=== PATIENT | male | born 1980 | race Caucasian/White ===

== ENCOUNTER 2024-05-15 15:41 | Emergency (ER) | payer OTHER, SELFPAY ==
--- NOTE | ~2024-05-15 | XR_ITS ---
HISTORY: left shoulder pain RADIATES DOWN LEFT ARM AFTER SLEEP COMPARISON: None TECHNIQUE: 4 views of the left shoulder were performed FINDINGS: No acute fracture. The glenohumeral joint space is maintained. Findings suggesting acromioclavicular joint malalignment, for which clinical correlation is needed. The visualized portion of the adjacent left lung is clear. The humeral head is well seated within the glenoid fossa. IMPRESSION: No acute fracture or anterior dislocation. Findings suggesting acromioclavicular joint malalignment, for which clinical correlation (and examina tion) is needed. Reviewed, dictated and finalized at location A. PICKER IMPRESSION: No acute fracture or anterior dislocation. Findings suggesting acromioclavicular joint malalignment, for which clinical co rrelation (and examination) is needed.
--- NOTE | ~2024-05-15 | XR_ITS ---
EXAMINATION: XR chest 2V Exam Date/Time: 05/15/2024 17:25 SOFT SUGAR OPERATOR HEAD HISTORY: lightheadedness Comparison: None. RESULT: Lines, tubes, and devices: None. Lungs and pleura: Clear. Cardiomediastinal silhouette: Normal. Other: No acute osseous or upper abdominal finding. IMPRESSION: No acute cardiopulmonary process. Reviewed, dictated and finalized at location K. SUGAR OPERATOR HEAD
[2024-05-15 15:50] VITALS: BP 170/84; PULSE 59; RESP 18; TEMP 36.4; O2SAT 100
--- NOTE | 2024-05-15 16:07 | ED.GENADULT ---
HPI - General Adult General Chief complaint: Unspecified <Kailyn Ocampo PA-C - Last Filed: 05/16/24 10:37> Stated complaint: L shoulder pain, lightheaded and nausea <Kailyn Ocampo PA-C - Last Filed: 05/16/24 10:37> Time Seen by Provider: 05/15/24 16:07 <Kailyn Ocampo PA-C - Last Filed: 05/16/24 10:37> Focused HPI: This is a 44 year old male that presents to the ER for left shoulder pain. Radiating into his neck. Ongoing since this morning. Reports this afternoon he started to feel lightheaded and nauseous. Reports he was sick over the weekend with a cold. Denies chest pain, shortness of breath. GENERAL: Well-appearing, well-nourished, and in no acute distress. HEAD: Normocephalic, atraumatic. CHEST: Clear to auscultation. ?No respiratory distress. HEART: Regular rate and rhythm.? NEURO: ?Alert and oriented x3. Patient screened in triage and initial orders placed.? ?Additional care and disposition to be based upon?diagnostic testing and treatment. <Kailyn Ocampo PA-C - Last Filed: 05/16/24 10:37> History of Present Illness HPI narrative: Agree with the HPI above. Patient denies any injuries or falls. No remote trauma, no history of shoulder pain in the past. Thinks he might have slept on it wrong. <Andrzej Sauer MD - Last Filed: 05/15/24 20:13> Related Data Allergies/adverse reactions: Allergies Allergy/AdvReac Type Severity Reaction Status Date / Time No Known Allergies Allergy Verified 05/15/24 15:42 <Kailyn Ocampo PA-C - Last Filed: 05/16/24 10:37> Review of Systems Review of Systems: As reviewed above in HPI <Andrzej Sauer MD - Last Filed: 05/15/24 20:13> PMFSH Past Medical History Medical History: Medical History (Updated 05/16/24 @ 10:37 by Kailyn Ocampo PA-C) Hyperlipidemia <Kailyn Ocampo PA-C - Last Filed: 05/16/24 10:37> Family History Family History: Family History Father Hypertension Heart problem Mother Breast cancer Grandparent Bone cancer Hypertension Heart problem Cerebrovascular accident Other Family history of coronary artery disease <Kailyn Ocampo PA-C - Last Filed: 05/16/24 10:37> Social History Social History: Social History Smoking status: Never smoker Second hand tobacco smoke exposure: No Alcohol intake: current Drinks per week: 6 Substance use: never Substance use type: does not use Do You Feel Safe in your Home?: Yes Lack of Transportation: No Lack of Food: Never True Current Housing: I Have Housing Concerned About Future Housing: No Difficulty Paying Gas/Electric Bills: No Difficulty Paying for Meds: No Currently Unemployed: No Education: Master's Degree or Higher Difficulty w/ Childcare or Family Care: No 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 Mucous membranes moist. NECK: Supple. CHEST: [Clear to auscultation. No respiratory distress.] HEART: [Regular rate and rhythm]. No murmur heard. [Normal peripheral pulses.] ABDOMEN: [Soft, nondistended], [nontender], [No rigidity or guarding] EXTREMITIES: Normal range of motion. [No edema.] Some mild tenderness to palpation over the anterior lateral AC joint, there appears to be some step-off between the acromioclavicular joint compared to the right shoulder. No restricted range of motion, no tenting of the skin, no clavicular dislocation, no obvious fractures, no crepitus. Passive and active range of motion is full without any reproducible pain, no frozen shoulder. SKIN: Warm, dry, no rash. NEURO: [No focal deficits]. Alert and oriented [x3.] PSYCH: [Normal mood and affect.] <Andrzej Sauer MD - Last Filed: 05/15/24 20:13> Course Vital Signs Vital signs: Vital Signs Temperature 97.6 F 05/15/24 15:50 Pulse Rate 59 L 05/15/24 15:50 Respiratory Rate 18 05/15/24 15:50 Blood Pressure 170/84 H 05/15/24 15:50 Pulse Oximetry 100 05/15/24 15:50 Temperature 97.6 F 05/15/24 15:50 Pulse Rate 58 L 05/15/24 20:33 Respiratory Rate 16 05/15/24 20:33 Blood Pressure 133/88 05/15/24 20:33 Pulse Oximetry 97 05/15/24 20:33 <Kailyn Ocampo PA-C - Last Filed: 05/16/24 10:37> Vital Signs Temperature 97.6 F 05/15/24 15:50 Pulse Rate 59 L 05/15/24 15:50 Respiratory Rate 18 05/15/24 15:50 Blood Pressure 170/84 H 05/15/24 15:50 Pulse Oximetry 100 05/15/24 15:50 Temperature 97.6 F 05/15/24 15:50 Pulse Rate 58 L 05/15/24 20:33 Respiratory Rate 16 05/15/24 20:33 Blood Pressure 133/88 05/15/24 20:33 Pulse Oximetry 97 05/15/24 20:33 <Andrzej Sauer MD - Last Filed: 05/15/24 20:13> Medical Decision Making MDM Narrative Medical decision making narrative: 44-year-old male presenting with left-sided shoulder pain radiating up to his neck. He is otherwise well-appearing not any acute distress, has a history of some hypertension hyperlipidemia. He has some mild tenderness in his left shoulder with appearance step off but no signal obvious external fractures or dislocation. Full range of motion and no frozen shoulder. No tachycardia, fever, hypoxia. Blood pressure came down after being examined the 2nd time. Without any intervention. Cardiac workup was ordered given the left-sided pain radiating towards his neck with associated nauseousness and lightheadedness earlier today. Symptoms have subsided aside from some mild pain in the shoulder. Suspicion presently is for musculoskeletal pain, ligamentous injury, musculoskeletal chest pain, less likely ACS or intrathoracic process such as pneumothorax or pneumonia. Workup ordered including chest x-ray, shoulder x-ray, EKG, CBC, CMP, lipase, troponin. He was given Naprosyn and Tylenol and a shoulder sling applied. Workup shows no leukocytosis or anemia. Normal platelet count. Electrolytes within normal range, negative troponin. Normal glucose, largely unremarkable LFTs. Negative viral panel. Chest x-ray shows no cardiac process, shoulder x-ray shows no fracture dislocation but there is AC joint malalignment correlating with his clinical exam. Patient likely has ligamentous sprain rather than a true dislocation or separation of his AC joint. He has good range of motion. Sling was applied, he was given pain control medications with improvement and given orthopedics follow-up instructions. Patient was safe and stable for discharge home at this time. <Andrzej Sauer MD - Last Filed: 05/15/24 20:13> Medical Records Medical records reviewed: Yes I reviewed the external patient's medical records. <Andrzej Sauer MD - Last Filed: 05/15/24 20:13> Vital Signs Vital Signs: Vital Signs Temperature 97.6 F 05/15/24 15:50 Pulse Rate 59 L 05/15/24 15:50 Respiratory Rate 18 05/15/24 15:50 Blood Pressure 170/84 H 05/15/24 15:50 Pulse Oximetry 100 05/15/24 15:50 Temperature 97.6 F 05/15/24 15:50 Pulse Rate 58 L 05/15/24 20:33 Respiratory Rate 16 05/15/24 20:33 Blood Pressure 133/88 05/15/24 20:33 Pulse Oximetry 97 05/15/24 20:33 <Kailyn Ocampo PA-C - Last Filed: 05/16/24 10:37> Vital Signs Temperature 97.6 F 05/15/24 15:50 Pulse Rate 59 L 05/15/24 15:50 Respiratory Rate 18 05/15/24 15:50 Blood Pressure 170/84 H 05/15/24 15:50 Pulse Oximetry 100 05/15/24 15:50 Temperature 97.6 F 05/15/24 15:50 Pulse Rate 58 L 05/15/24 20:33 Respiratory Rate 16 05/15/24 20:33 Blood Pressure 133/88 05/15/24 20:33 Pulse Oximetry 97 05/15/24 20:33 <Andrzej Sauer MD - Last Filed: 05/15/24 20:13> Lab Data Lab results reviewed: Yes I reviewed the patient's lab results. <Andrzej Sauer MD - Last Filed: 05/15/24 20:13> Result diagrams: 05/15/24 17:21 05/15/24 17:21 <Kailyn Ocampo PA-C - Last Filed: 05/16/24 10:37> Labs: Lab Results 05/15/24 Range/Units 17:21 WBC 6.8 (4.5-10.0) K/mm3 RBC 5.63 (4.6-6.20) M/mm3 Hgb 17.0 (14.0-18.0) g/dL Hct 47.0 (42.0-52.0) % MCV 83.5 (80-100) fl MCH 30.2 (26-34) pg MCHC 36.2 H (32-36) g/dl RDW 12.1 (11.5-14.5) % Plt Count 188 (150-375) k/mm3 MPV 10.9 H (7.4-10.4) fl Immature Gran % (Auto) 0.6 H (0-0.5) % Neut % (Auto) 62.4 (45.5-73.1) % Lymph % (Auto) 21.9 (18.3-44.2) % [place] % (Auto) 6.6 (2.6-8.5) % Eos % (Auto) 7.2 H (0-4.4) % Baso % (Auto) 1.3 H (0.2-1.2) % Lymph # (Auto) 1.48 (0.9-3.2) K/mm3 [place] # (Auto) 0.5 (0.1-0.6) K/mm3 Eos # (Auto) 0.5 H (0-0.3) K/mm3 Baso # (Auto) 0.1 (0.0-0.1) K/mm3 Abs Immat Gran (auto) 0.04 H (0.00-0.031) K/mm3 Absolute Neuts (auto) 4.2 (1.3-6.7) K/mm3 Absolute Nucleated RBC 0.000 (0.0-0.012) K/mm3 Nucleated RBC % 0.0 (0.0-0.2) % Sodium 138 (137-145) mmol/L Potassium 4.0 (3.4-5.0) mmol/L Chloride 100 (98-107) mmol/L Carbon Dioxide 26 (22-30) mmol/L Anion Gap 12 (4-12) mmol/L BUN 13 (9-20) mg/dL Creatinine 0.75 (0.7-1.3) mg/dL Estim Creat Clear Calc 114 ml/min Estimated GFR > 60 (59 - ) Glucose 98 (65-110) mg/dL Calcium 10.0 (8.4-10.2) mg/dL Total Bilirubin 1.5 H (0.2-1.3) mg/dL AST 40 (17-59) U/L ALT 83 H (6-50) U/L Alkaline Phosphatase 56 (38-126) U/L Troponin I < 0.012 (0.000-0.034) ng/mL Total Protein 8.0 (6.3-8.2) g/dL Albumin 5.1 (3.5-5.1) g/dL Influenza A (RT-PCR) Negative (Negative) Influenza B (RT-PCR) Negative (Negative) RSV (RT-PCR) Negative (Negative) SARS-CoV-2 RNA (RT-PCR) Negative (Negative) <Kailyn Ocampo PA-C - Last Filed: 05/16/24 10:37> Lab Results 05/15/24 Range/Units 17:21 WBC 6.8 (4.5-10.0) K/mm3 RBC 5.63 (4.6-6.20) M/mm3 Hgb 17.0 (14.0-18.0) g/dL Hct 47.0 (42.0-52.0) % MCV 83.5 (80-100) fl MCH 30.2 (26-34) pg MCHC 36.2 H (32-36) g/dl RDW 12.1 (11.5-14.5) % Plt Count 188 (150-375) k/mm3 MPV 10.9 H (7.4-10.4) fl Immature Gran % (Auto) 0.6 H (0-0.5) % Neut % (Auto) 62.4 (45.5-73.1) % Lymph % (Auto) 21.9 (18.3-44.2) % [place] % (Auto) 6.6 (2.6-8.5) % Eos % (Auto) 7.2 H (0-4.4) % Baso % (Auto) 1.3 H (0.2-1.2) % Lymph # (Auto) 1.48 (0.9-3.2) K/mm3 [place] # (Auto) 0.5 (0.1-0.6) K/mm3 Eos # (Auto) 0.5 H (0-0.3) K/mm3 Baso # (Auto) 0.1 (0.0-0.1) K/mm3 Abs Immat Gran (auto) 0.04 H (0.00-0.031) K/mm3 Absolute Neuts (auto) 4.2 (1.3-6.7) K/mm3 Absolute Nucleated RBC 0.000 (0.0-0.012) K/mm3 Nucleated RBC % 0.0 (0.0-0.2) % Sodium 138 (137-145) mmol/L Potassium 4.0 (3.4-5.0) mmol/L Chloride 100 (98-107) mmol/L Carbon Dioxide 26 (22-30) mmol/L Anion Gap 12 (4-12) mmol/L BUN 13 (9-20) mg/dL Creatinine 0.75 (0.7-1.3) mg/dL Estim Creat Clear Calc 114 ml/min Estimated GFR > 60 (59 - ) Glucose 98 (65-110) mg/dL Calcium 10.0 (8.4-10.2) mg/dL Total Bilirubin 1.5 H (0.2-1.3) mg/dL AST 40 (17-59) U/L ALT 83 H (6-50) U/L Alkaline Phosphatase 56 (38-126) U/L Troponin I < 0.012 (0.000-0.034) ng/mL Total Protein 8.0 (6.3-8.2) g/dL Albumin 5.1 (3.5-5.1) g/dL Influenza A (RT-PCR) Negative (Negative) Influenza B (RT-PCR) Negative (Negative) RSV (RT-PCR) Negative (Negative) SARS-CoV-2 RNA (RT-PCR) Negative (Negative) <Andrzej Sauer MD - Last Filed: 05/15/24 20:13> Imaging Data Attestation: I personally reviewed and interpreted this imaging study as follows: <Andrzej Sauer MD - Last Filed: 05/15/24 20:13> My impression: Impressions Shoulder X-Ray 05/15/24 16:34 IMPRESSION: No acute fracture or anterior dislocation. Findings suggesting acromioclavicular joint malalignment, for which clinical correlation (and examination) is needed. Chest X-Ray 05/15/24 17:36 IMPRESSION: No acute cardiopulmonary process. <Andrzej Sauer MD - Last Filed: 05/15/24 20:13> ECG Data EKG #1: Attestation: I personally reviewed and interpreted this ECG as follows: <Andrzej Sauer MD - Last Filed: 05/15/24 20:13> ECG completion date: 05/15/24 <Andrzej Sauer MD - Last Filed: 05/15/24 20:13> ECG completion time: 17:19 <Andrzej Sauer MD - Last Filed: 05/15/24 20:13> Prior ECG tracings: not available for review <Andrzej Sauer MD - Last Filed: 05/15/24 20:13> Interpretation: Some MO prolongation but no ST segment elevations, depressions or inversions. No ectopy. MO interval 216, QRS 88, QTC 415. Overall follow interpretation sinus rhythm with first-degree block. <Andrzej Sauer MD - Last Filed: 05/15/24 20:13> Critical Care Time Critical Care Time Critical Care Time: No <Kailyn Ocampo PA-C - Last Filed: 05/16/24 10:37> Discharge Plan Discharge Clinical Impression: Acromioclavicular (joint) (ligament) sprain Qualifiers: Encounter type: initial encounter Laterality: left Qualified Code(s): S43.52XA - Sprain of left acromioclavicular joint, initial encounter Acute shoulder pain Qualifiers: Laterality: left Qualified Code(s): M25.512 - Pain in left shoulder <Kailyn Ocampo PA-C - Last Filed: 05/16/24 10:37> Patient Disposition: Home, Self-Care <Kailyn Ocampo PA-C - Last Filed: 05/16/24 10:37> Condition: Stable <CAYETANO D[place] Last Filed: 05/16/24 10:37> Instructions: Antibiotic Form, Acromioclavicular Separation (ED) <Kailyn Ocampo PA-C - Last Filed: 05/16/24 10:37> Additional Instructions: You have a small separation in the acromioclavicular joint on the left shoulder which likely explains her pain and symptoms. Wear the sling for comfort but did not wear it 10/10 as this can lead to muscle stiffness and further pain. Take the prescription Naprosyn and Tylenol for pain control and inflammation control, follow-up with Orthopedic surgery or your regular doctor. Return with any new or worsening concerns. Your cardiac workup was otherwise reassuring. <Kailyn Ocampo PA-C - Last Filed: 05/16/24 10:37> Patient Language: Yemeni <Kailyn Ocampo PA-C - Last Filed: 05/16/24 10:37> Prescriptions: New naproxen 500 mg tablet 500 mg PO BID PRN (Reason: pain) 15 Days Qty: 30 0RF acetaminophen [Tylenol Extra Strength] 500 mg tablet 1,000 mg PO TID PRN (Reason: pain) Qty: 30 0RF No Action albuterol sulfate 90 mcg/actuation HFA aerosol inhaler 2 inh inhalation .COMPLEX Qty: 8.5 1RF Rx Instructions: Use 15-20 minutes before exercise <Kailyn Ocampo PA-C - Last Filed: 05/16/24 10:37> Follow-up/Referrals: Marilia,Prudencio Gallo MD [Primary Care Provider] - Levi Casillas MD [Physician] - 1 Week (AC sprain/separation) <Kailyn Ocampo PA-C - Last Filed: 05/16/24 10:37> Time of Disposition: 20:12 <Kailyn Ocampo PA-C - Last Filed: 05/16/24 10:37> 20:12 <Andrzej Sauer MD - Last Filed: 05/15/24 20:13>
--- NOTE | 2024-05-15 16:08 | ECG_ITS ---
Test Date: 2024-05-15 17:19:25 Measurements Intervals [place] Rate: 66 P: 60 IN: 216 QRS: 59 QRSD: 88 T: 46 QT: 395 QTc: 415 Interpretive Statements SINUS RHYTHM WITH SINUS ARRHYTHMIA WITH FIRST DEGREE AV BLOCK LEFT ATRIAL ENLARGEMENT NONSPECIFIC ST & T-WAVE ABNORMALITY- ANT/INF LEADS BASELINE ARTIFACT- I, II, AVR, AVL, AVF BORDERLINE ECG No previous ECG available for comparison Electronically Signed On 05-15-2024 19:05:44 BIOLOGY MANAGER by Franck Samuel D.O.
[2024-05-15 17:28] LABS: Basophils Absolute Auto 0.1 K/mm3 (0.0-0.1); Basophils Percent Auto 1.3 % (0.2-1.2); Eosinophils Absolute Auto 0.5 K/mm3 (0-0.3); Eosinophils Percent Auto 7.2 % (0-4.4); Immature Granulocyte Absolute 0.04 K/mm3 (0.00-0.031); Immature Granulocyte Percent A 0.6 % (0-0.5); Lymphocytes Absolute Auto 1.48 K/mm3 (0.9-3.2); Lymphocytes Percent Auto 21.9 % (18.3-44.2); Mean Corpuscular HGB Conc 36.2 g/dl (32-36); Mean Corpuscular Hemoglobin 30.2 pg (26-34); Mean Corpuscular Volume 83.5 fl (80-100); Mean Platelet Volume 10.9 fl (7.4-10.4); Monocytes Absolute Auto 0.5 K/mm3 (0.1-0.6); Monocytes Percent Auto 6.6 % (2.6-8.5); Neutrophils Absolute Auto 4.2 K/mm3 (1.3-6.7); Neutrophils Percent Auto 62.4 % (45.5-73.1); Platelet Count Result 188 k/mm3 (150-375); Red Blood Count 5.63 M/mm3 (4.6-6.20); Red Cell Distribution Width 12.1 % (11.5-14.5); White Blood Count 6.8 K/mm3 (4.5-10.0)
[2024-05-15 17:49] LABS: Alanine Aminotransferase 83 U/L (6-50); Albumin Level 5.1 g/dL (3.5-5.1); Alkaline Phosphatase 56 U/L (38-126); Anion Gap 12 mmol/L (4-12); Aspartate Amino Transferase 40 U/L (17-59); Bilirubin,Total 1.5 mg/dL (0.2-1.3); Blood Urea Nitrogen 13 mg/dL (9-20); Carbon Dioxide 26 mmol/L (22-30); Chloride 100 mmol/L (98-107); Estimated CRCL calculation 114 ml/min; Estimated Glomerular Filt Rate > 60; Glucose 98 mg/dL (65-110); Sodium 138 mmol/L (137-145)
--- OUTSIDE RECORDS SUMMARY | 2024-05-15 18:01 | XMS_ITS | Patient Health Summary ---
Author Organization [facility] Address [address] [place] [address] Care Team Providers Care Bookkeeping Service Sales Agent Name Role Phone Unknown, Provider Primary Care Provider Unavaila ble Note from [facility],non-owned Affiliates and Associated Physician Practices is amultiple site organization consisting of ambulatory clinics and hospital sitesin [place], [place], [place] and [place]. This disclosure is being madepursuant to the Care Everywhere program and may not contain all information available regarding this patient. Last updated 17.[facility] Allergies No known active allergies Medications * Be aware that medications may not be up to date on this document. Alwaysverify current medications with the patient. * influenza quadrivalent vac (AFLURIA QUAD) 0.5 ML injection Afluria Qd 2019- (36 mos up)(PF)60 mcg (15 mcg x4)/0.5 mL IM syringe ADM 0.5ML IM UTD * azithromycin (ZITHROMAX) 250 MG tablet(Started 10/28/2020) Take 2 tabs today, then 1 tab daily for next 4 days * fluticasone propionate (FLONASE) 50 MCG/ACT nasal spray(Started 10/28/2020) [place] 2 (two) sprays into each nostril once daily Active Problems Problem Noted Date Diagnosed Date Encounter for male sterilization procedure 10/28 Social History Tobacco Use Types Packs/Day Years Used Date Smoking Tobacco: Never Smokeless Tobacco: Never Sex and Gender Information Value Date Recorded Sex Assigned at Not on file Gender Identity Not on file Sexual Orientation Not on file Last Filed Vital Signs Vital Sign Reading Time Taken Comments Blood Pressure 118/68 10/28/2020 12:33 PM CDT Pulse 66 10/28/2020 12:33 PM CDT Temperature 36.9 C (98.4 F) 10/28/2020 12:33 PM CDT Respiratory Rate - - Oxygen Saturation 97% 10/28/2020 12:33 PM CDT Inhaled Oxygen Concentration - - Weight 72.6 kg (160 lb) 10/28/2020 12:33 PM CDT Height 177.8 cm (5' 10 ) 10/28/2020 12:33 PM CDT Body Mass Index 22.96 10/28/2020 12:33 PM CDT Procedures * SARS-COV-2 (COVID-19) AG (AMB) POCT(Performed 10/28/2020) Performed for Sore throat * STREP A SCREEN - POINT OF CARE (AMB) STL(Performed 10/28/2020) Performed for Sore throat Results * SARS-COV-2 (COVID-19) AG (AMB) POCT (10/28/2020 12:45 PM CDT) SARS-CoV-2 Ag Negative Negative [facility] Lot # [id number] [facility] Expiration Date 03/28/22 [facility] Instrument Serial Number [id number] [facility] COVID Internal Control Acceptable Acceptable [facility] Microbiology SPECIMEN FROM NASAL FOSSAE / Unknown 10/28/2020 12:45 PM CDT Jose Armando Martinez WET ROOM WORKER-NURSE EXTERN LAB - POINT OF CARE ORDERABLES Performing Organization Address City/State/[facility] Co de Phone Number [facility] [address] [phone] * STREP A SCREEN - POINT OF CARE (AMB) STL (10/28/2020 12:43 PM CDT) Strep A Rapid POCT Negative Negative [facility] Strep A Internal Control Present [facility] Lot # [id number] [facility] Expiration Date 07/17/21 [facility] Throat ENTIRE THROAT (SURFACE REGION OF NECK) / Unknown 10/28/2020 12:43 PM CDT Jose Armando Martinez WET ROOM WORKER-NURSE EXTERN LAB - POINT OF CARE ORDERABLES Performing Organization Address City/State/[facility] Co de Phone Number [place] [address], [facility] [phone] Care Teams Bookkeeping Service Sales Agent Relationship Specialty Start Date End Date Unknown, Provider PCP - General 10/28/20
--- OUTSIDE RECORDS SUMMARY | 2024-05-15 18:01 | XMS_ITS | Encounter Summary ---
Author Organization [facility] Address 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
--- OUTSIDE RECORDS SUMMARY | 2024-05-15 18:01 | XMS_ITS | Referral Summary ---
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 Gender Identity Not on file Sexual Orientation Not on file Last Filed Vital Signs Vital Sign Reading Time Taken Comments Blood Pressure 124/75 05/02/2013 8:24 AM H[employer] BRIM [employer] CROWN LAMINATING OPERATOR Pulse 73 05/02/2013 8:24 AM HAT BRIM AND CROWN LAMINATING OPERATOR Temperature - - Respiratory Rate - - Oxygen Saturation - - Inhaled Oxygen Concentration - - Weight 72.1 kg (159 lb) 05/02/2013 8:24 AM HAT BRIM AND CROWN LAMINATING OPERATOR Height 177.8 cm (5' 10 ) 05/02/2013 8:24 AM HAT BRIM AND CROWN LAMINATING OPERATOR Body Mass Index 22.81 05/02/2013 8:24 AM HAT BRIM AND CROWN LAMINATING OPERATOR Plan of Treatment Not on file Insurance [employer] OPEN ACCESS [place] OPEN ACCESS Care Teams Whiskey Proof Reader Relationship Specialty Start Date End Date Thad De Luna MD [address] [address] PCP - General Family Medicine 06/22/21
--- OUTSIDE RECORDS SUMMARY | 2024-05-15 18:01 | XMS_ITS | Referral Summary ---
Author Organization [facility] Address [address] [place] [address] Care Team Providers Care Collections Professional Name Role Phone Unknown, Provider Primary Care Provider Unavaila ble Source Comments [facility],non-owned Affiliates and Associated Physician Practices is amultiple site organization consisting of ambulatory clinics and hospital sitesin [place], [place], [place] and [place]. This disclosure is being madepursuant to the Care Everywhere program and may not contain all information available regarding this patient. Last updated 17.[facility] Allergies No known active allergies Medications * Be aware that medications may not be up to date on this document. Alwaysverify current medications with the patient. Medication Sig Dispensed Refills Start Date End Date Status influenza quadrivalent vac (AFLURIA QUAD) 0.5 ML injection Afluria Qd (36 mos up)(PF)60 mcg (15 mcg x4)/0.5 mL IM syringe ADM 0.5ML IM UTD Active azithromycin (ZITHROMAX) 250 MG tabletIndications:Sinu sitis, unspecified chronicity, unspecified location Take 2 tabs today, then 1 tab daily for next 4 days 6 tablet 10/28/2020 Active fluticasone propionate (FLONASE) 50 MCG/ACT nasal sprayIndications:Sinus itis, unspecified chronicity, unspecified location [place] 2 (two) sprays into each nostril once daily 1 Each 10/28/2020 Active Active Problems Problem Noted Date Diagnosed Date [...] Mass Index 22.96 10/28/2020 12:33 PM CDT Plan of Treatment Not on file Care Teams Collections Professional Relationship Specialty Start Date End Date Unknown, Provider PCP - General 10/28/20
--- OUTSIDE RECORDS SUMMARY | 2024-05-15 18:01 | XMS_ITS | Clinical Summary ---
Author Organization [facility] Address [address] [place] [address] Phone Care Team Providers Care Grated Cheese Maker Name Role Phone Wilda Pena DO Primary Care Provider Unavaila ble Allergies No known active allergies Medications No known medications Active Problems No known active problems Family History Medical History Relation Name Comments Hypertension Father Other Maternal Grandmother possibl y multiple myeloma Healthy Mother Heart Disease Paternal Grandfather mi at age 60 Healthy Sister Relation Name Status Comments Father Alive Maternal Grandmother Mother Alive Paternal Grandfather Sister Alive Social History Tobacco Use Types Packs/Day Years Used Date Smoking Tobacco: Never Smokeless Tobacco: Never Alcohol Use Standard Drinks/Week Comments Yes 0.8 (1 standard drink = 0.6 oz p ure alcohol) couple times a week socially Sex and Gender Information Value Date Recorded Sex Assigned at Not on file Legal Sex Male 5:14 AM ADOPTION AGENT Gender Identity Not on file Sexual Orientation Not on file Last Filed Vital Signs Vital Sign Reading Time Taken Comments Blood Pressure 128/90 06/15/2010 2:53 PM CDT Pulse 82 06/15/2010 2:53 PM CDT Temperature 36.7 C (98.1 F) 06/15/2010 2:53 PM CDT Respiratory Rate 18 06/15/2010 2:53 PM CDT Oxygen Saturation 97% 06/15/2010 2:53 PM CDT Inhaled Oxygen Concentration - - Weight 75.8 kg (167 lb) 06/15/2010 2:53 PM CDT Height 182.9 cm (6') 06/15/2010 2:53 PM CDT Body Mass Index 22.65 06/15/2010 2:53 PM CDT Plan of Treatment Health Maintenance Due Date Last Done Comments DTAP/TDAP/TD VACCINES (1 - Tdap) 01/17/2000 HEPATITIS B VACCINES (1 of 3 - 19+ 3-dose series) 01/17/2000 INFLUENZA VACCINE (#1) 2023 HPV VACCINES Aged Out No longer eligi ble based on patient's age to complete this topic PNEUMOCOCCAL VACCINE 0-64 YEARS Aged Out No longer eligible based on patient's age to complete this topic Care Teams Grated Cheese Maker Relationship Specialty Start Date End Date Wilda Pena DO PCP - General Family Practice 06/15/10
--- OUTSIDE RECORDS SUMMARY | 2024-05-15 18:01 | XMS_ITS | Continuity of Care Document ---
Author Organization [facility] Address [address] [place] [address] Phone Care Team Providers Care Roll Cutting Operator Name Role Phone William PT, OSCART, Rocco Unavailable Unavailable Procedures Procedure Date Therapeutic Activities Therapeutic Exercise Neuromuscular Re-Ed Therapeutic Activities Neuromuscular Re-Ed Progress Note Therapeutic Activities Neuromuscular Re-Ed Therapeutic Activities Neuromuscular Re-Ed Progress Note Neuromuscular Re-Ed Therapeutic Activities Therapeutic Activities Neuromuscular Re-Ed Therapeutic Activities Neuromuscular Re-Ed Neuromuscular Re-Ed Therapeutic Activities Neuromuscular Re-Ed Therapeutic Activities PT Evaluation Moderate Complexity Therapeutic Activities Neuromuscular Re-Ed Advance Directives Directive Yes / No Effective Date File Name No Information Encounters Encounter Description Practice Location Reason(s) For Visit Diagnoses Date Provider Providers Copied on Encounter [facility], [place], [place], [id number], tel:[phone] [place] No Information 2 William Valiente. . [facility], [place], [place], [address], tel:[phone] [place] No Information 2 Klahn Rocco. . Referring Provider: Feli Antonio, [address], [place], [address]. tel:[phone] [facility], [address], [place], [place], [address], [place] tel:[phone] [place] No Information 2 Klahn Rocco. . Referring Provider: Feli Antonio, [address], [place], [address]. tel:[phone] [facility], [address], [place], [place], [address], [place] tel:[phone] [place] No Information 2 Klahn Rocco. . Referring Provider: Feli Antonio, [address], [place], [address]. tel:[phone] [facility], [address], [place], [place], [address], [place] tel:[phone] [place] No Information 2 Klahn Rocco. . Referring Provider: Feli Antonio, [address], [place], [address]. tel:[phone] [facility], [address], [place], [place], [address], [place] tel:[phone] [place] No Information 2 Klahn Rocco. . Referring Provider: Feli Antonio, [address], [place], [address]. tel:[phone] [facility], [address], [place], [place], [address], [place] tel:[phone] [place] No Information 2 Klahn Rocco. . Referring Provider: Feli Antonio, [address], [place], [address]. tel:[phone] [facility], [address], [place], [place], [address], tel:[phone] [place] No Information 2 William Valiente. . Referring Provider: Feli Antonio, [address] [place] [address] [address], [place], [address]. tel:[phone] [facility], [address] [place] [address] [address], [place], [place], [address], [place] tel:[phone] [place] No Information 2 William Valiente. . Referring Provider: Feli Antonio, [address] [place] [address] [address], [place], [address]. tel:[phone] [facility] [address] [address], [place], [place], [id number], tel:[phone] [place] No Information 2 William Valiente. . Referring Provider: Feli Antonio, [address] [place] [address], [place], [address]. tel:[phone] [facility] [address], [place], [place], [address], tel:[phone] [place] No Information 2 William Valiente. . Referring Provider: Feli Antonio, [facility] [address], [place], [address]. tel:[phone] Family History Family Member Type Diagnosis Age At Onset No Information Payers Payer name Insurance type Covered green party ID Yovana nieto(s) Shelley [id number] Social History Type Description Quantity Date Captured Comments Sex Male Smoking Status No Information Chief Complaint And Reason For Visit No Information Reason For Referral Reason For Referral No Information History Of Present Illness Encounter Date Complaint History Of Prese nt Illness No Information Functional Status Date Functional Assessmen t No Information Instructions Date Instruction Additional Infor mation No Information Assessments Type Assessment Date No Information Patient Care Teams Name Effective Dates (start - stop) Status Members No Information
--- OUTSIDE RECORDS SUMMARY | 2024-05-15 18:01 | XMS_ITS | Clinical Summary ---
Author Organization [facility] [employer] Address [address] [place] [place] [address] Care Team Providers Care Technical Inspector Name Role Phone Unknown, Provider Primary Care Provider Unavaila ble Source Comments [facility],non-owned Affiliates and Associated Physician Practices is amultiple site organization consisting of ambulatory clinics and hospital sitesin [place], [place], [place] and [place]. This disclosure is being madepursuant to the Care Everywhere program and may not contain all information available regarding this patient. Last updated 17.[facility] [employer] Allergies No known active allergies Medications * [...] nasal sprayIndications:Sinus itis, unspecified chronicity, unspecified location [place] 2 (two) sprays into each nostril once [...] 10/28/2020 12:33 PM CDT Plan of Treatment Health Maintenance Due Date Last Done Comments LIPID TESTING 1981 HIV SCREENING 01/17/1996 HEPATITIS C SCREENING 01/12/1999 DTAP/TDAP/TD VACCINES (1 - Tdap) 01/17/2000 HEPATITIS B VACCINE (1 of 3 - 19+ 3-dose series) 01/17/2000 COVID-19 VACCINE (2 - 2023-2 5 season) 2023 06/01/2020 INFLUENZA VACCINE (#1) 2023 0, 12/18/2017 DEPRESSION SCREENING 03/20/2024 ZOSTER VACCINE (1 of 2) 2031 HIB VACCINE Aged Out No longer eligi ble based on patient's age to complete this topic HPV VACCINE Aged Out No longer eligi ble based on patient's age to complete this topic MENINGOCOCCAL (Group B) VACCINE Aged Out No longer eligible b ased on patient's age to complete this topic MENINGOCOCCAL VACCINE Aged Out No alexei south eligible based on patient's age to complete this topic PNEUMOCOCCAL VACCINE Aged Out No long er eligible based on patient's age to complete this topic Care Teams Technical Inspector Relationship Specialty Start Date End Date Unknown, Provider PCP - General 10/28/20
--- OUTSIDE RECORDS SUMMARY | 2024-05-15 18:01 | XMS_ITS | Clinical Summary ---
Author Organization [facility] Address [address] [place] [address] Care Team Providers Care Life Skills Specialist Name Role Phone Thad De Luna MD Primary Care Provider [phone] Allergies No known active allergies Medications No known medications Active Problems No known active problems Surgical History Surgery Date Site/Laterality Comments TONSILLECTOMY 03/20/1986 - 03/19/1987 Tonsillectomy FRACTURE SURGERY 03/20/1998 - 03/19/1999 HERNIA REPAIR 03/20/1986 - 03/19/1987 VASECTOMY 03/20/2015 - 03/19/2016 Medical History Medical History Date Comments Hx Other Medical 1984 Hernia Hx Other Medical Broken right wr ist Family History Medical History Relation Name Comments Hypertension Father Gian Cancer Mother Rebecca Relation Name Status Comments Father Gian Mother Rebecca Social History Tobacco Use Types Packs/Day Years Used Date Smoking Tobacco: Never Sex and Gender Information Value Date Recorded Sex Assigned at Not on file Legal Sex Male 3:08 AM FIRST MATE Gender Identity Not on file Sexual Orientation Not on file Obstetrics History Last Filed Vital Signs Vital Sign Reading Time Taken Comments Blood Pressure 124/75 05/02/2013 8:24 AM FIRST MATE Pulse 73 05/02/2013 8:24 AM FIRST MATE Temperature - - Respiratory Rate - - Oxygen Saturation - - Inhaled Oxygen Concentration - - Weight 72.1 kg (159 lb) 05/02/2013 8:24 AM FIRST MATE Height 177.8 cm (5' 10 ) 05/02/2013 8:24 AM FIRST MATE Body Mass Index 22.81 05/02/2013 8:24 AM FIRST MATE Plan of Treatment Health Maintenance Due Date Last Done Comments Depression Screening 1981 Hepatitis C Screening 1981 Varicella Vaccines (1 of 2 - 13+ 2-dose series) 1994 Hepatitis B Screening 1999 Regular Well Visit/Exam 18-64 1999 DTaP/Tdap/Td Vaccine (3 - Td or Tdap) 04/22/2022 04/22/2012, 03/13/2012 Covid-19 Vaccine (3 - 2023-2 5 season) 2023 01/15/2021, 06/01/2020 Influenza Vaccine (#1) 2023 , 11/15/2019, 12/18/2017 HPV Vaccines Aged Out No longer eligi ble based on patient's age to complete this topic Pneumococcal vaccine <65 Aged Out No longer eligible based on patient's age to complete this topic Insurance [employer] OPEN ACCESS [employer] OPEN ACCESS Care Teams Life Skills Specialist Relationship Specialty Start Date End Date Thad De Luna MD [address] [address] PCP - General Family Medicine 06/22/21
[2024-05-15 18:03] LABS: Influenza A QL RT-PCR Negative (Negative); Influenza B QL RT-PCR Negative (Negative); RSV RNA, RT-PCR Negative (Negative); SARS-CoV-2 RNA PCR Negative (Negative)
[2024-05-15 18:57] LABS: Troponin I < 0.012 ng/mL (0.000-0.034)
[2024-05-15 19:07] VITALS: BP 142/83; PULSE 55
[2024-05-15 19:08] VITALS: BP 154/90; PULSE 79
[2024-05-15 19:09] VITALS: BP 137/104; PULSE 72
--- OUTSIDE RECORDS SUMMARY | 2024-05-15 19:15 | XMS_ITS | Encounter Summary ---
Author Organization [employer] Address [address] [place] [address] Care Team Providers Care Games Manager Name Role Phone Wilda Pena DO Primary Care Provider Yonas ferris Encounter Details Date Type Department Care Team (Latest Contact Info) Description 03/21/2006 Outpatient Historical [facility] [place] [place] MD NO ADDRESS ON FILE Open Wound of Hand (Primary Dx) Social History Tobacco Use Types Packs/Day Years Used Date Smoking Tobacco: Never Assessed Sex and Gender Information Value Date Recorded Sex Assigned at Not on file Legal Sex Male 5:14 AM BREWING TECHNICIAN Gender Identity Not on file Sexual Orientation Not on file documented as of this encounter Plan of Treatment Not on file documented as of this encounter Visit Diagnoses Diagnosis Open wound of hand except finger(s) alone, without mention of complication- Primary documented in this encounter Care Teams Games Manager Relationship Specialty Start Date End Date Wilda Pena DO PCP - General Family Practice 06/15/10 documented as of this encounter
--- OUTSIDE RECORDS SUMMARY | 2024-05-15 19:15 | XMS_ITS | Clinical Summary ---
Author Organization [facility] Address [address] [place] [address] Phone Care Team Providers Care Hospital Superintendent Name Role Phone Wilda Pena DO Primary [...] on file Legal Sex Male 5:14 AM MICROBIOLOGY MANAGER Gender Identity Not on file Sexual Orientation [...] age to complete this topic Care Teams Hospital Superintendent Relationship Specialty Start Date End Date Wilda Pena DO PCP - General Family Practice 06/15/10
--- OUTSIDE RECORDS SUMMARY | 2024-05-15 19:15 | XMS_ITS | Clinical Summary ---
Author Organization [facility] Address [address] [place] [address] Care Team Providers Care Printing Machine Mechanic Name Role Phone Thad De Luna MD Primary Care Provider [phone] Allergies No known active allergies Medications No [...] on file Legal Sex Male 3:08 AM HEAVY EQUIPMENT OPERATING ENGINEER Gender Identity Not on file Sexual Orientation Not on file Obstetrics History Last Filed Vital Signs Vital Sign Reading Time Taken Comments Blood Pressure 124/75 05/02/2013 8:24 AM HEAVY EQUIPMENT OPERATING ENGINEER Pulse 73 05/02/2013 8:24 AM HEAVY EQUIPMENT OPERATING ENGINEER Temperature - - Respiratory Rate - - Oxygen Saturation - - Inhaled Oxygen Concentration - - Weight 72.1 kg (159 lb) 05/02/2013 8:24 AM HEAVY EQUIPMENT OPERATING ENGINEER Height 177.8 cm (5' 10 ) 05/02/2013 8:24 AM HEAVY EQUIPMENT OPERATING ENGINEER Body Mass Index 22.81 05/02/2013 8:24 AM HEAVY EQUIPMENT OPERATING ENGINEER Plan of Treatment Health Maintenance Due Date [...] patient's age to complete this topic Insurance [employer] OPEN ACCESS [employer] OPEN ACCESS Care Teams Printing Machine Mechanic Relationship Specialty Start Date End Date Thda De Luna MD [address] [address] PCP - General Family Medicine 06/22/21
--- OUTSIDE RECORDS SUMMARY | 2024-05-15 19:15 | XMS_ITS | Continuity of Care Document ---
Author Organization [facility] Address [address] [place] [address] Phone Care Team Providers Care Fox Raiser Name Role Phone William PT, OSCART, Rocco Unavailable Unavailable Procedures Procedure Date Therapeutic Activities Therapeutic Exercise Neuromuscular Re-Ed Therapeutic Activities Neuromuscular Re-Ed Progress Note Therapeutic Activities Neuromuscular Re-Ed Neuromuscular Re-Ed Therapeutic Activities Progress Note Therapeutic Activities Neuromuscular Re-Ed Therapeutic Activities Neuromuscular Re-Ed Therapeutic Activities Neuromuscular Re-Ed Neuromuscular Re-Ed Therapeutic Activities Therapeutic Activities Neuromuscular Re-Ed PT Evaluation Moderate Complexity Neuromuscular Re-Ed Therapeutic Activities Advance Directives Directive Yes / No Effective Date File Name No Information Encounters Encounter Description Practice Location Reason(s) For Visit Diagnoses Date Provider Providers Copied on Encounter [facility], [place], [place], [id number], tel:[phone] [place] No Information 2 William Valiente. . [facility], [place], [place], [address], tel:[phone] [place] No Information 2 Klahn Rocco. . Referring Provider: Feli Antonio, [address], [place], [address]. tel:[phone] [facility], [address], [place], [place], [address], [place] tel:[phone] [place] No Information 2 Klahn Rocco. . Referring Provider: Feli Antonio, [address], [place], [address]. tel:[phone] [facility], [address], [place], [place], [address], [place] tel:[phone] [place] No Information 2 Klahn Rocco. . Referring Provider: Feli Antonio, [address], [place], [address]. tel:[phone] [facility], [address], [place], [place], [address], [place] tel:[phone] [place] No Information 2 Klahn Rocco. . Referring Provider: Feli Antonio, [address], [place], [address]. tel:[phone] [facility], [address], [place], [place], [address], [place] tel:[phone] [place] No Information 2 Klahn Rocco. . Referring Provider: Feli Antonio, [address], [place], [address]. tel:[phone] [facility], [address], [place], [place], [address], [place] tel:[phone] [place] No Information 2 Klahn Rocco. . Referring Provider: Feli Antonio, [address], [place], [address]. tel:[phone] [facility], [address], [place], [place], [address], tel:[phone] [place] No Information 2 William Valiente. . Referring Provider: Feli Antonio, [address] [place] [address] [address], [place], [address]. tel:[phone] [facility], [address] [place] [address] [address], [place], [place], [address], [place] tel:[phone] [place] No Information 2 William Valiente. . Referring Provider: Feli Antonio, [address] [place] [address] [address], [place], [address]. tel:[phone] [facility] [address] [address], [place], [place], [id number], tel:[phone] [place] No Information 2 William Valiente. . Referring Provider: Feli Antonio, [address] [place] [address], [place], [address]. tel:[phone] [facility] [address], [place], [place], [address], tel:[phone] [place] No Information 2 William Valiente. . Referring Provider: Feli Antonio, [facility], [place], [address]. tel:[phone] Family History Family Member Type Diagnosis Age At Onset No Information Payers Payer name Insurance type Covered republican ID Yovana nieto(s) Shelley [id number] Social History Type Description Quantity Date Captured [...]
--- OUTSIDE RECORDS SUMMARY | 2024-05-15 19:15 | XMS_ITS | Clinical Summary ---
Author Organization [facility] [employer] Address [address] [place] [address] Care Team Providers Care Voip Technician Name Role Phone Unknown, Provider Primary Care Provider Unavaila ble Source Comments [facility],non-owned Affiliates and Associated Physician Practices is amultiple site organization consisting of ambulatory clinics and hospital sitesin [place], [place], [place] and [place]. This disclosure is being madepursuant to the Care Everywhere program and may not contain all information available regarding this patient. Last updated 17.[facility] [employer] Allergies No known active allergies Medications * [...] nasal sprayIndications:Sinus itis, unspecified chronicity, unspecified location [place] 2 (two) sprays into each nostril once [...] age to complete this topic Care Teams Voip Technician Relationship Specialty Start Date End Date Unknown, Provider PCP - General 10/28/20
--- OUTSIDE RECORDS SUMMARY | 2024-05-15 19:15 | XMS_ITS | Patient Health Summary ---
Author Organization [facility] [employer] Address [address] [place] [address] Care Team Providers Care Physical Therapist Technician Name Role Phone Unknown, Provider Primary Care Provider Unavaila ble Note from [facility],non-owned Affiliates and Associated Physician Practices is amultiple site organization consisting of ambulatory clinics and hospital sitesin [place], [place], [place] and [place]. This disclosure is being madepursuant to the Care Everywhere program and may not contain all information available regarding this patient. Last updated 17.[facility] [employer] Allergies No known active allergies Medications * [...] propionate (FLONASE) 50 MCG/ACT nasal spray(Started 10/28/2020) [place] 2 (two) sprays into each nostril once [...] Negative Negative [facility] Lot # [id number] [facility] Expiration Date 03/28/22 [facility] Instrument Serial Number [id number] [facility] COVID Internal Control Acceptable Acceptable [facility] Microbiology SPECIMEN FROM NASAL FOSSAE / Unknown 10/28/2020 12:45 PM CDT Jose Armando Martinez DESIGN QUALITY ENGINEER-TREE CLIMBER LAB - POINT OF CARE ORDERABLES Performing Organization Address City/State/[facility] Co de Phone Number [facility] [address] [phone] * STREP A SCREEN - POINT OF CARE (AMB) STL (10/28/2020 12:43 PM CDT) Strep A Rapid POCT Negative Negative [facility] Strep A Internal Control Present [facility] Lot # [id number] [facility] Expiration Date 07/17/21 [facility] Throat ENTIRE THROAT (SURFACE REGION OF NECK) / Unknown 10/28/2020 12:43 PM CDT Jose Armando Martinez DESIGN QUALITY ENGINEER-TREE CLIMBER LAB - POINT OF CARE ORDERABLES Performing Organization Address City/State/[facility] Co de Phone Number [place] [address], [facility] [phone] Care Teams Physical Therapist Technician Relationship Specialty Start Date End Date Unknown, Provider PCP - General 10/28/20
--- OUTSIDE RECORDS SUMMARY | 2024-05-15 19:15 | XMS_ITS | Referral Summary ---
Author Organization [facility] Address [address] [place] [address] Care Team Providers Care Jumpbasting Facing Baster Name Role Phone Thad De Luna MD Primary Care Provider [phone] Allergies No known active allergies Medications No known medications Active Problems No known active problems Social History Tobacco Use Types Packs/Day Years Used Date Smoking Tobacco: Never Sex and Gender Information Value Date Recorded Sex Assigned at Not on file Legal Sex Male 3:08 AM BOTTLE SORTER Gender Identity Not on file Sexual Orientation Not on file Last Filed Vital Signs Vital Sign Reading Time Taken Comments Blood Pressure 124/75 05/02/2013 8:24 AM BOTTLE SORTER Pulse 73 05/02/2013 8:24 AM BOTTLE SORTER Temperature - - Respiratory Rate - - Oxygen Saturation - - Inhaled Oxygen Concentration - - Weight 72.1 kg (159 lb) 05/02/2013 8:24 AM BOTTLE SORTER Height 177.8 cm (5' 10 ) 05/02/2013 8:24 AM BOTTLE SORTER Body Mass Index 22.81 05/02/2013 8:24 AM BOTTLE SORTER Plan of Treatment Not on file Insurance [employer] OPEN ACCESS [employer] OPEN ACCESS Care Teams Jumpbasting Facing Baster Relationship Specialty Start Date End Date Thad De Luna MD [address] [address] PCP - General Family Medicine 06/22/21
--- OUTSIDE RECORDS SUMMARY | 2024-05-15 19:15 | XMS_ITS | Referral Summary ---
Author Organization [facility] Address [address] [place] [address] Care Team Providers Care Physiotherapist'S Assistant Name Role Phone Unknown, Provider Primary Care Provider Unavaila ble Source Comments [facility],non-owned Affiliates and Associated Physician Practices is amultiple site organization consisting of ambulatory clinics and hospital sitesin [place], [place], [place] and [place]. This disclosure is being madepursuant to the Care Everywhere program and may not contain all information available regarding this patient. Last updated 17.[facility] [employer] Allergies No known active allergies Medications * [...] nasal sprayIndications:Sinus itis, unspecified chronicity, unspecified location [place] 2 (two) sprays into each nostril once [...] of Treatment Not on file Care Teams Physiotherapist'S Assistant Relationship Specialty Start Date End Date Unknown, Provider PCP - General 10/28/20
[2024-05-15 20:07] VITALS: BP 133/88; PULSE 58; RESP 16; O2SAT 97
[2024-05-15] MEDS: ACETAMINOPHEN 500 MG TABLET 1000 MG PO (20:23)
[2024-05-15] MEDS: NAPROXEN 500 MG TABLET PO (20:23)
[2024-05-15 20:33] VITALS: BP 133/88; PULSE 58; RESP 16; O2SAT 97
== END 2024-05-15 20:35 | disposition home or self-care (01) ==
PROVIDERS: Physician Assistant; Emergency Provider Student in an Organized Health Care Education/Training Program; PCP Emergency Medicine
DX: S43.52XA Sprain of left acromioclavicular joint, initial encounter (principal); E78.5 Hyperlipidemia, unspecified; Z11.59 Encounter for screening for other viral diseases
CPT/HCPCS: 36415; 71046; 73030; 80053; 84484; 85025; 87637; 93005; 99284; A4565; A9270

== ENCOUNTER 2025-02-19 07:05 | Inpatient (IN) | payer OTHER, SELFPAY ==
[2025-02-19] VITALS (18 sets, daily range): BP systolic 119–160; BP diastolic 55–97; PULSE 51–87; RESP 14–18; TEMP 36.1–36.6; O2SAT 95–100; BMI 25.4
--- NOTE | ~2025-02-19 | CT_ITS ---
CT abdomen pelvis w con Clinical History: periumbilical tenderness since last night, n/v . Comparison: None Technique: Axial images lung bases to symphysis pubis IV contrast information not listed in PACS Coronal, sagittal reformats CT images acquired with automatic exposure control for dose reduction DLP: 429 mGy-cm Findings: Lung bases: Clear. Visualized heart and pericardium: Unremarkable. Liver: Enlarged. Steatosis. Gallbladder: Unremarkable. Spleen: Unremarkable. Pancreas: Unremarkable. Adrenal glands: Unremarkable. Kidneys: Right kidney- No hydronephrosis. No renal stones. Left kidney- No hydronephrosis. No renal stones. Distal esophagus/stomach: Unremarkable. Small bowel loops: Normal caliber and wall thickness. Colon: Normal caliber and wall thickness. Appendix enlarged, inflamed. Nodes: No enlarged nodes. Peritoneum: No ascites. No free air. Urinary bladder: Unremarkable. Prostate: Unremarkable. Bones: No acute bony abnormality. Soft tissues: Unremarkable. Aorta: No aneurysm or dissection. IVC: Unremarkable. Main portal vein/SMV/splenic vein: Patent. IMPRESSION: 1. Acute appendicitis. No complicating features. Reviewed, dictated and finalized at location [facility]. [employer]
--- OUTSIDE RECORDS SUMMARY | 2025-02-19 07:07 | XMS_ITS | Encounter Summary ---
Author Organization [facility] Address [facility] [place] [address] Care Team Providers Care Web Site Manager Name Role Phone Clara Reed MD Primary Care Provider + Encounter Details Date Type Department Care Team (Late Contact Info) Description 09/26/2024 MyChart Message Enc [address] [phone] Clara Reed MD [address] [place] [address] Blood pressure Social History Tobacco Use Types Packs/Day Years Used Date Smoking Tobacco: Never Passive Smoke Exposure: Past Smokeless Tobacco: Never Alcohol Use Standard Drinks/Week Comments Yes 10 (1 standard drink = 0.6 oz pu re alcohol) socially PHQ-2 Answer Date Recorded Patient Health Questionnaire-2 Score 0 09/03/2024 Sex and Gender Information Value Date Recorded Sex Assigned at Not on file Legal Sex Male 9:33 AM CDT Gender Identity Not on file Sexual Orientation Not on file 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
--- OUTSIDE RECORDS SUMMARY | 2025-02-19 07:07 | XMS_ITS | Clinical Summary ---
Author Organization [facility] Address [address] [facility] [place] [address] Care Team Providers Care Zoo Keeper Name Role Phone Unknown, Provider Primary Care Provider Unavaila ble Source Comments [facility],non-owned Affiliates and Associated Physician Practices is amultiple site organization consisting of ambulatory clinics and hospital sitesin [place], [place], [place] and [place]. This disclosure is being madepursuant to the Care Everywhere program and may not contain all information available regarding this patient. Last updated 17.[facility] Allergies No known active allergies Medications * Be aware that medications may not be up to date on this document. Alwaysverify current medications with the patient. influenza quadrivalent vac (AFLURIA QUAD) 0.5 ML injection Afluria Qd (36 mos up)(PF)60 mcg (15 mcg x4)/0.5 mL IM syringe ADM 0.5ML IM UTD Active azithromycin (ZITHROMAX) 250 MG tabletIndications :Sinusitis, unspecified chronicity, unspecified location Take 2 tabs today, then 1 tab daily for next 4 days 6 tablet 1 Active fluticasone propionate (FLONASE) 50 MCG/ACT nasal sprayIndications: Sinusitis, unspecified chronicity, unspecified location [place] 2 (two) sprays into each nostril once daily 1 Each 1 Active Active Problems Problem Noted Date Diagnosed Date Encounter for male sterilization procedure 10/28 Social History Tobacco Use Types Packs/Day Years Used Date Smoking Tobacco: Never Smokeless Tobacco: Never Sex and Gender Information Value Date Recorded Sex Assigned at Not on file Legal Sex Male 5:39 PM CDT Gender Identity Not on file Sexual [...] 12:33 PM CDT Height 177.8 cm (5' 10) 10/28/2020 12:33 PM CDT Body Mass Index 22.96 10/28/2020 12:33 PM CDT Plan of Treatment Health Maintenance Due Date Last Done Comments LIPID TESTING 1981 HIV SCREENING 01/17/1996 HEPATITIS C SCREENING 01/12/1999 DTAP/TDAP/TD VACCINES (1 - Tdap) 01/17/2000 HEPATITIS B VACCINE (1 of 3 - 19+ 3-dose series) 01/17/2000 HPV VACCINE (1 - 3-dose SCDM series) 01/17/2008 DEPRESSION SCREENING 03/20/2024 COVID-19 VACCINE (2 - 2024-2 6 season) 2024 06/01/2020 INFLUENZA VACCINE (#1) 2024 0, 12/18/2017 ZOSTER VACCINE (1 of 2) 2031 HIB VACCINE Aged Out No longer eligi ble based on patient's age to complete this topic MENINGOCOCCAL (Group B) VACCINE SHARED DECISION-MAKING Aged Out No longer eligible based on patient's age to complete this topic MENINGOCOCCAL GROUPS A/C/Y/W VACCINE Aged Out No longer eligible b ased on patient's age to complete this topic PNEUMOCOCCAL VACCINE Aged Out No long er eligible based on patient's age to complete this topic Insurance [facility] Care Teams Zoo Keeper Relationship Specialty Start Date End Date Unknown, Provider PCP - General 10/28/20
--- OUTSIDE RECORDS SUMMARY | 2025-02-19 07:07 | XMS_ITS | Clinical Summary ---
Author Organization [facility] Address [address] [place] [address] Care Team Providers Care Opening Machine Cleaner Name Role Phone Clara Reed MD Primary Care Provider + Allergies No known active allergies Medications albuterol sulfate HFA 108 (90 Base) MCG/ACT inhalerIndicatio ns:Wheezing Inhale 2 puffs into the lungs every 4 (four) hours as needed. 18 g 1 09/03/2024 Active Active Problems No known active problems Immunizations Immunization Administration Dates Next Due Influenza Adult (Generic) 12/29/2022,12/07/2021, 11/15/2019,12/18/2017 Tdap (Adacel) 09/03/2024 Tdap (Generic) 04/22/2012,03/13/2012 Family History Medical History Relation Comments No Known Problems Daughter Hypertension Father Heart Disease Maternal Grandfather Cancer Maternal Grandmother bone? Cancer Mother Breast Heart Disease Paternal Grandfather Stroke Paternal Grandfather No Known Problems Sister No Known Problems Son Relation Status Comments Daughter Alive Father Alive Maternal Grandfather Maternal Grandmother Alive Mother Alive Paternal Grandfather Sister Alive Son Alive Social History Tobacco Use Types Packs/Day Years Used Date Smoking Tobacco: Never Passive Smoke Exposure: Past Smokeless Tobacco: Never Tobacco Cessation:Counseling Given: Not Answered Alcohol Use Standard Drinks/Week Comments Yes 10 [...] Industry Job Start Date Job End Date [employer] Not on file Not on file Not on file Last Filed Vital Signs Vital Sign Reading Time Taken Comments Blood Pressure 131/88 09/03/2024 7:58 AM CDT Pulse 60 09/03/2024 7:58 AM CDT Temperature 36.3 C (97.4 F) 09/03/2024 7:58 AM CDT Respiratory Rate - - Oxygen Saturation 97% 09/03/2024 7:58 AM CDT Inhaled Oxygen Concentration - - Weight 79.1 kg (174 lb 6.4 oz) 09/03/2024 7:58 A M CDT Height 177.8 cm (5' 10) 09/03/2024 7:58 AM CDT Body Mass Index 25.02 09/03/2024 7:58 AM CDT Plan of Treatment Upcoming Encounters Date Type Department Care Team (Late st Contact Info) Description 09/04/2025 7:50 AM CDT Office Visit [facility] Family Medicine - [place] [address] [place] [phone] Clara Reed MD [address] [place], [place] [phone] Health Maintenance Due Date Last Done Comments Hepatitis C 1999 Hepatitis B Vaccines (1 of 3 - 19+ 3-dose series) 01/17/2000 HPV Vaccines (1 - 3-dose SCDM series) 01/17/2008 COVID-19 Vaccine ( season) 2024 12/29/2022, 12/07/2021, 01/15/2021, Additional history exists Influenza Adult (#1) 2024 12/29/2022, 12/07/2021, 11/15/2019, Additional history exists Annual Physical 09/03/2025 09/03/2024 DTaP, Tdap and Td Vaccines (4 - Td or Tdap) 09/03/2034 09/03/2024, 04/22/2012, 03/13/2012 PHQ-2 (Physician [place]) Completed 09/03/2024 Hepatitis A Vaccines Aged Out No long er eligible based on patient's age to complete this topic Meningococcal B Vaccine Aged Out No l onger eligible based on patient's age to complete this topic Meningococcal Vaccine Aged Out No alex[place] south eligible based on patient's age to complete this topic Pneumococcal Vaccine: Pediatrics (0 to 5 Years) and At-Risk Patients (6 to 49 Years) Aged Out No longer eligible based on patient's age to complete this topic RSV Immunizations Under 20 Months Aged Out No longer eligible based on patient's age to complete this topic Insurance [facility] Care Teams Opening Machine Cleaner Relationship Specialty Start Date End Date Clara Reed MD [address] [place] [address] PCP - General FAMILY PRACTICE 07/23/24
--- OUTSIDE RECORDS SUMMARY | 2025-02-19 07:07 | XMS_ITS | Clinical Summary ---
Author Organization [facility] Address [address] [place] [address] Care Team Providers Care Home Health Travel Ot Name Role Phone Thad De Luna MD Primary Care Provider [phone] Allergies No known active allergies Medications No [...] on file Legal Sex Male 3:08 AM HAND GLOVE CLEANER Gender Identity Not on file Sexual Orientation Not on file Last Filed Vital Signs Vital Sign Reading Time Taken Comments Blood Pressure 124/75 05/02/2013 8:24 AM HAND GLOVE CLEANER Pulse 73 05/02/2013 8:24 AM HAND GLOVE CLEANER Temperature - - Respiratory Rate - - Oxygen Saturation - - Inhaled Oxygen Concentration - - Weight 72.1 kg (159 lb) 05/02/2013 8:24 AM HAND GLOVE CLEANER Height 177.8 cm (5' 10) 05/02/2013 8:24 AM HAND GLOVE CLEANER Body Mass Index 22.81 05/02/2013 8:24 AM HAND GLOVE CLEANER Plan of Treatment Not on file Insurance [facility] OPEN ACCESS [facility] OPEN ACCESS Care Teams Home Health Travel Ot Relationship Specialty Start Date End Date Thad De Luna MD [address] [address] PCP - General Family Medicine 06/22/21
--- OUTSIDE RECORDS SUMMARY | 2025-02-19 07:07 | XMS_ITS | Encounter Summary ---
Author Organization [facility] Address [facility] [place] [address] Care Team Providers Care Firer Retort Name Role Phone Clara Reed MD Primary Care Provider + Encounter Details Date Type Department Care Team (Late Contact Info) Description 09/24/2024 MyChart Message Enc [address] [phone] Clara Reed MD [address] [place] [address] Blood pressure Social History Tobacco Use [...] Description 09/04/2025 7:50 AM CDT Office Visit [address] [phone] Clara Reed MD [address] [place] [address] documented as of this encounter Visit Diagnoses Not on filedocumented in this encounter Care Teams Firer Retort Relationship Specialty Start Date End Date Clara Reed MD [address] [place] [address] PCP - General FAMILY PRACTICE 07/23/24 documented as of this encounter
--- NOTE | 2025-02-19 07:15 | ED_ITS ---
HPI - Abdominal Pain General Chief Complaint: Abdominal Pain Stated Complaint: severe abdominal pain started last night Time Seen by Provider: 02/19/25 07:11 History of Present Illness HPI narrative: Started last night, patient started having nausea vomiting, and significant periumbilical pain, has never had this before, things worse this morning so came in. Related Data Allergies Allergy/AdvReac Type Severity Reaction Status Date / Time No Known Allergies Allergy Verified 05/22/24 07:12 [facility] Past Medical History Medical History Hyperlipidemia Family History Family History Father Hypertension Heart problem Mother Breast cancer Grandparent Bone cancer Hypertension Heart problem Cerebrovascular accident Other Family history of coronary artery disease Social History Social History (Updated 05/22/24 @ 07:48 by Nelly Aviles CMA) Smoking status: Never smoker Second hand tobacco smoke exposure: No Alcohol intake: current Drinks per week: 6 Substance use: never Substance use type: does not use Lack of Food: Never True Current Housing: Decline to Answer Concerned About Future Housing: Decline to Answer Difficulty Paying Gas/Electric Bills: Decline to Answer Difficulty Paying for Meds: Decline to Answer Currently Unemployed: Decline to Answer Education: Decline to Answer Difficulty w/ Childcare or Family Care: Decline to Answer 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 Gender identity (if verbalized by the patient): Male Course Vital Signs Vital signs: Vital Signs Temperature 97.7 F 02/19/25 07:13 Pulse Rate 61 02/19/25 07:13 Respiratory Rate 16 02/19/25 07:13 Blood Pressure 160/77 H 02/19/25 07:13 Pulse Oximetry 98 02/19/25 07:13 Oxygen Delivery Room Air 02/19/25 07:13 Temperature 97.7 F 02/19/25 07:13 Pulse Rate 60 02/19/25 09:31 Respiratory Rate 16 02/19/25 09:31 Blood Pressure 146/90 H 02/19/25 09:31 Pulse Oximetry 98 02/19/25 09:31 Oxygen Delivery Room Air 02/19/25 07:13 MDM MDM Narrative Medical decision making narrative: Electronic medical record was reviewed. Patient presented to the ED with complaint of [abdominal pain and nausea]. Vitals [were within acceptable limits]. Physical exam revealed [tenderness to palpation in periumbilical abdomen]. Based on the patient's history and physical exam, my differential includes but is not limited to [gastritis, gastroenteritis, cholecystitis, pancreatitis, appendicitis]. [IV access was established by nursing staff. Patient was given zofran, morphine]. CBC, BMP, lipase, LFTs, bilirubin and alk phos were obtained. Labs were pertinent for mildly elevated white count. CT unfortunately does show acute appendicitis. Patient updated, spoke with surgeon, antibiotics started, admitted to surgeon. Differential Diagnosis Differential Diagnosis: gastritis, gastroenteritis, cholecystitis, pancreatitis, appendicitis Lab Data 02/19/25 07:24 02/19/25 07:24 Labs: Lab Results 02/19/25 02/19/25 Range/Units 07:24 07:35 WBC 10.8 H (4.5-10.0) K/mm3 RBC 5.27 (4.6-6.20) M/mm3 Hgb 15.7 (14.0-18.0) g/dL Hct 43.3 (42.0-52.0) % MCV 82.2 (80-100) fl MCH 29.8 (26-34) pg MCHC 36.3 H (32-36) g/dl RDW 12.4 (11.5-14.5) % Plt Count 182 (150-375) k/mm3 MPV 10.4 (7.4-10.4) fl Immature Gran % (Auto) 0.6 H (0-0.5) % Neut % (Auto) 80.4 H (45.5-73.1) % Lymph % (Auto) 10.4 L (18.3-44.2) % Luna % (Auto) 4.9 (2.6-8.5) % Eos % (Auto) 3.1 (0-4.4) % Baso % (Auto) 0.6 (0.2-1.2) % Lymph # (Auto) 1.13 (0.9-3.2) K/mm3 Luna # (Auto) 0.5 (0.1-0.6) K/mm3 Eos # (Auto) 0.3 (0-0.3) K/mm3 Baso # (Auto) 0.1 (0.0-0.1) K/mm3 Abs Immat Gran (auto) 0.06 H (0.00-0.031) K/mm3 Absolute Neuts (auto) 8.7 H (1.3-6.7) K/mm3 Absolute Nucleated RBC 0.000 (0.0-0.012) K/mm3 Nucleated RBC % 0.0 (0.0-0.2) % Sodium 135 L (137-145) mmol/L Potassium 4.2 (3.4-5.0) mmol/L Chloride 103 (98-107) mmol/L Carbon Dioxide 25 (22-30) mmol/L Anion Gap 7 (4-12) mmol/L BUN 13 (9-20) mg/dL Creatinine 0.84 (0.7-1.3) mg/dL Estim Creat Clear Calc 101 ml/min Estimated GFR > 60 (59 - ) Glucose 109 (65-110) mg/dL Lactic Acid 1.4 (0.7-2.0) mmol/L Calcium 9.6 (8.4-10.2) mg/dL Total Bilirubin 1.6 H (0.2-1.3) mg/dL AST 77 H (17-59) U/L ALT 113 H (6-50) U/L Alkaline Phosphatase 52 (38-126) U/L Total Protein 7.6 (6.3-8.2) g/dL Albumin 4.8 (3.5-5.1) g/dL Lipase 90 (23-300) U/L Urine Color Yellow (Yellow) Urine Appearance Clear (Clear) Urine pH 8.0 (5.0-9.0) Ur Specific [place] 1.019 (1.001-1.035) Urine Protein Trace (Negative) mg/dL Urine Glucose (UA) Negative (Negative) mg/dL Urine Ketones Negative (Negative) mg/dL Ur Blood (Man) Negative (Negative) Urine Nitrate Negative (Negative) Urine Bilirubin Negative (Negative) Urine Urobilinogen 0.2 (<2.0) mg/dL Leukocyte Esterase Rfl Negative (Negative) DAVID/UL Urine RBC 0-2 (0-2) /hpf Urine WBC 0-5 (0-3) /hpf Ur Squamous Epith Cells None seen (Few) /hpf Urine Bacteria None seen /hpf Urine Casts 0-2 Imaging Data Radiologist's impression: ITS Impressions Abdomen/Pelvis CT 12/03/25 08:29 IMPRESSION: 1. Acute appendicitis. No complicating features. Discharge Plan Discharge Clinical Impression: Acute appendicitis Patient Disposition: Still a Patient Condition: Stable Instructions: Antibiotic Form Patient Language: Estonian Prescriptions: No Action albuterol sulfate 90 mcg/actuation HFA aerosol inhaler 2 inh inhalation .COMPLEX Qty: 8.5 1RF Rx Instructions: Use 15-20 minutes before exercise naproxen 500 mg tablet 500 mg PO BID PRN (Reason: pain) 15 Days Qty: 30 0RF acetaminophen [Tylenol Extra Strength] 500 mg tablet 1,000 mg PO TID PRN (Reason: pain) Qty: 30 0RF Follow-up/Referrals: PHYSICIAN,TUCKPOINTER CLEANER CAULKER [Non-Staff, Internal Medicine]
[2025-02-19 07:31] LABS: Hematocrit 43.3 % (42.0-52.0); Hemoglobin 15.7 g/dL (14.0-18.0); Immature Granulocyte Percent A 0.6 % (0-0.5); Lymphocytes Absolute Auto 1.13 K/mm3 (0.9-3.2); Mean Corpuscular HGB Conc 36.3 g/dl (32-36); Mean Corpuscular Hemoglobin 29.8 pg (26-34); Mean Corpuscular Volume 82.2 fl (80-100); Nucleated Red Blood Cells Absolute Auto 0.000 K/mm3 (0.0-0.012); Nucleated Red Blood Cells Perc 0.0 % (0.0-0.2); Platelet Count Result 182 k/mm3 (150-375); Red Blood Count 5.27 M/mm3 (4.6-6.20); White Blood Count 10.8 K/mm3 (4.5-10.0)
[2025-02-19 07:46] LABS: Alanine Aminotransferase 113 U/L (6-50); Albumin Level 4.8 g/dL (3.5-5.1); Alkaline Phosphatase 52 U/L (38-126); Anion Gap 7 mmol/L (4-12); Aspartate Amino Transferase 77 U/L (17-59); Bilirubin,Total 1.6 mg/dL (0.2-1.3); Blood Urea Nitrogen 13 mg/dL (9-20); Calcium 9.6 mg/dL (8.4-10.2); Carbon Dioxide 25 mmol/L (22-30); Chloride 103 mmol/L (98-107); Estimated CRCL calculation 101 ml/min; Estimated Glomerular Filt Rate > 60; Glucose 109 mg/dL (65-110); Lipase 90 U/L (23-300); Potassium 4.2 mmol/L (3.4-5.0); Sodium 135 mmol/L (137-145); Total Protein 7.6 g/dL (6.3-8.2)
--- OUTSIDE RECORDS SUMMARY | 2025-02-19 07:46 | XMS_ITS | Clinical Summary ---
Author Organization [facility] Address [address] [place] [address] Care Team Providers Care Director Business Name Role Phone Thad De Luna MD Primary Care Provider [phone] Allergies No known active allergies Medications No [...] on file Legal Sex Male 3:08 AM CLOTH PATTERN MAKER Gender Identity Not on file Sexual Orientation Not on file Last Filed Vital Signs Vital Sign Reading Time Taken Comments Blood Pressure 124/75 05/02/2013 8:24 AM CLOTH PATTERN MAKER Pulse 73 05/02/2013 8:24 AM CLOTH PATTERN MAKER Temperature - - Respiratory Rate - - Oxygen Saturation - - Inhaled Oxygen Concentration - - Weight 72.1 kg (159 lb) 05/02/2013 8:24 AM CLOTH PATTERN MAKER Height 177.8 cm (5' 10) 05/02/2013 8:24 AM CLOTH PATTERN MAKER Body Mass Index 22.81 05/02/2013 8:24 AM CLOTH PATTERN MAKER Plan of Treatment Not on file Insurance [facility] OPEN ACCESS [facility] OPEN ACCESS Care Teams Director Business Relationship Specialty Start Date End Date Thad De Luna MD [address] [address] PCP - General Family Medicine 06/22/21
--- OUTSIDE RECORDS SUMMARY | 2025-02-19 07:46 | XMS_ITS | Clinical Summary ---
Author Organization [facility] Address [address] [place] [address] Care Team Providers Care Infrastructure Director Name Role Phone Clara Reed MD Primary [...] Industry Job Start Date Job End Date [employer] company Not on file Not on file [...] Description 09/04/2025 7:50 AM CDT Office Visit [facility] Family Medicine - [place] [address] [place] [phone] Clara Reed MD [address] [place], [place] [phone] Health Maintenance Due Date Last Done Comments [...] Tdap) 09/03/2034 09/03/2024, 04/22/2012, 03/13/2012 PHQ-2 (Physician [place]) Completed 09/03/2024 Hepatitis A Vaccines Aged Out [...] patient's age to complete this topic Insurance [facility] Care Teams Infrastructure Director Relationship Specialty Start Date End Date Clara Reed MD [address] [place] [address] PCP - General FAMILY PRACTICE 07/23/24
--- OUTSIDE RECORDS SUMMARY | 2025-02-19 07:46 | XMS_ITS | Encounter Summary ---
Author Organization [facility] Address [facility] [place] [address] Care Team Providers Care Residency Coordinator Name Role Phone Clara Reed MD Primary Care Provider + Encounter Details Date Type Department Care Team (Late Contact Info) Description 09/24/2024 MyChart Message Enc [address] [phone] Clara Reed MD [address] [place] [address] Blood pressure Social History Tobacco Use [...] Description 09/04/2025 7:50 AM CDT Office Visit [address] [phone] Clara Reed MD [address] [place] [address] documented as of this encounter Visit Diagnoses Not on filedocumented in this encounter Care Teams Residency Coordinator Relationship Specialty Start Date End Date Clara Reed MD [address] [place] [address] PCP - General FAMILY PRACTICE 07/23/24 documented as of this encounter
--- OUTSIDE RECORDS SUMMARY | 2025-02-19 07:46 | XMS_ITS | Encounter Summary ---
Author Organization [facility] Address [facility] [place] [address] Care Team Providers Care Outpatient Interviewing Clerk Name Role Phone Clara Reed MD Primary Care Provider + Encounter Details Date Type Department Care Team (Late Contact Info) Description 09/26/2024 MyChart Message Enc [address] [phone] Clara Reed MD [address] [place] [address] Blood pressure Social History Tobacco Use [...] Description 09/04/2025 7:50 AM CDT Office Visit [address] [phone] Clara Reed MD [address] [place] [address] documented as of this encounter Visit Diagnoses Not on filedocumented in this encounter Care Teams Outpatient Interviewing Clerk Relationship Specialty Start Date End Date Clara Reed MD [address] [place] [address] PCP - General FAMILY PRACTICE 07/23/24 documented as of this encounter
--- OUTSIDE RECORDS SUMMARY | 2025-02-19 07:46 | XMS_ITS | Encounter Summary ---
Author Organization [facility] Address [address] [place] [address] Care Team Providers Care Biodiesel Process Control Technician Name Role Phone Wilda Pena DO Primary Care Provider [phone] Encounter Details Date Type Department Care Team (Latest Contact Info) Description 03/21/2006 Outpatient [place] [facility] [place] MD NO ADDRESS ON FILE Open Wound of Hand (Primary Dx) Social History Tobacco Use Types Packs/Day Years Used Date Smoking Tobacco: Never Assessed Sex and Gender Information Value Date Recorded Sex Assigned at Not on file Legal Sex Male 5:14 AM MILL HAND Gender Identity Not on file Sexual Orientation Not on file documented as of this encounter Plan of Treatment Not on file documented as of this encounter Visit Diagnoses Diagnosis Open wound of hand except finger(s) alone, without mention of complication- Primary documented in this encounter Care Teams Biodiesel Process Control Technician Relationship Specialty Start Date End Date Wilda Pena DO PCP - General Family Practice 06/15/10 documented as of this encounter
--- OUTSIDE RECORDS SUMMARY | 2025-02-19 07:46 | XMS_ITS | Clinical Summary ---
Author Organization [facility] Address [address] [facility] [place] [address] Care Team Providers Care Partner Alliance Manager Name Role Phone Unknown, Provider Primary Care Provider Unavaila ble Source Comments [facility],non-owned Affiliates and Associated Physician Practices is amultiple site organization consisting of ambulatory clinics and hospital sitesin [place], [place], [place] and [place]. This disclosure is being madepursuant to the Care Everywhere program and may not contain all information available regarding this patient. Last updated 17.[facility] Allergies No known active allergies Medications * [...] nasal sprayIndications: Sinusitis, unspecified chronicity, unspecified location [place] 2 (two) sprays into each nostril once [...] age to complete this topic Insurance [facility] Care Teams Partner Alliance Manager Relationship Specialty Start Date End Date Unknown, Provider PCP - General 10/28/20
--- OUTSIDE RECORDS SUMMARY | 2025-02-19 07:46 | XMS_ITS | Clinical Summary ---
Author Organization [facility] Address [address] [place] [address] Phone Care Team Providers Care Electric Motor Controls Assembler Name Role Phone Jean Wilda Leslie DICKENS Primary Care Provider [phone] Allergies No known active allergies Medications No [...] on file Legal Sex Male 5:14 AM PRESCHOOL ASSISTANT PRINCIPAL Gender Identity Not on file Sexual Orientation [...] (1 of 3 - 19+ 3-dose series) 12/20 HPV VACCINES (1 - 3-dose SCDM series) 01/17/2008 INFLUENZA VACCINE (#1) 2024 Care Teams Electric [employer] Controls Assembler Relationship Specialty Start Date End Date Wilda Pena DO PCP - General Family Practice 06/15/10
[2025-02-19 07:50] LABS: Add Urine Microscopic? YES; Appearance Urine Clear (Clear); Glucose Urine UA Negative (Negative); Leukocyte Esterase Ur Negative LEU/UL (Negative); Nitrate Urine Negative (Negative); Non Pathogenic Casts 0-2; Specific Grav Ur 1.019 (1.001-1.035)
[2025-02-19] MEDS: PIPERACILLIN/TAZOBACTAM SOD 3.375 GM in SODIUM CHLORIDE 0.9% IV 50 ML 100 ML IVPB ×3 (09:24→21:13)
[2025-02-19] MEDS: ONDANSETRON INJ 4 MG/2 ML VIAL IV PUSH (09:30)
[2025-02-19] MEDS: LACTATED RINGERS 1,000 ML 999 ML IV CONT (09:30)
[2025-02-19] MEDS: MORPHINE SULFATE (*CRX) 4 MG/ML INJ IV PUSH (09:30)
--- NOTE | 2025-02-19 09:55 | WPCEDHO ---
ED Hand Off Checklist All vitals saved:yes IV Site documented:yes All med administrations documented:yes Triage Note Triage Note patient to ED with c/o mid upper 02/19/25 07:13 abd pain since last night, no h/o surgery Allergies No Known Allergies Allergy (Verified 05/22/24 07:12) Family History (Last Reviewed 05/22/24 @ 07:12 by Luzma Oconnor [facility]) Father Hypertension Heart problem Mother Breast cancer Grandparent Bone cancer Hypertension Heart problem Cerebrovascular accident Other Family history of coronary artery disease Active Medications including assessments/comments Lactated Ringer's (Lr - Lactated Ringers Iv) 1,000 mls @ 999 mls/hr IV CONT .Q1H1M STA Stop: 02/19/25 10:23 Last Admin: 02/19/25 09:30 Dose: 999 mls/hr Documented By: TEREZA Infusion/Titration Document 02/19/25 09:30 TEREZA (Rec: 02/19/25 09:30 [facility] [id number] Intake IV Site Peripheral Access Right Forearm Container Volume 1,000 Waste Amount 0 Dosing Infusion Rate 999 Cumulative Dose Not Applicable Increase/Decrease Started Elapsed Time Elapsed Time ( 0m minutes) Administered/Completed Medications Discontinued Medications Piperacillin Sod/Tazobactam (Sod 3.375 gm/ Sodium Chloride) 50 mls @ 100 mls/hr IVPB ONCE STA Stop: 02/19/25 09:32 Last Admin: 02/19/25 09:24 Dose: 100 mls/hr Documented By: TEREZA Morphine Sulfate (Morphine Sulfate (*Crx) 4 Mg/Ml Inj) 4 mg IV PUSH ONCE STA Stop: 02/19/25 09:10 Last Admin: 02/19/25 09:30 Dose: 4 mg Documented By: TEREZA Ondansetron HCl (Ondansetron Inj 4 Mg/2 Ml Vial) 4 mg IV PUSH ONCE STA Stop: 02/19/25 09:10 Last Admin: 02/19/25 09:30 Dose: 4 mg Documented By: TEREZA Interventions/Assessments IV / Saline Lock, Insert Start: 02/19/25 07:06 Freq: Status: Active Protocol: Document 02/19/25 07:21 JOLEEN (Rec: 02/19/25 07:22 [facility] [id number]) IV Assessment Peripheral Access Right Forearm IV Catheter Access Initiated IV Insertion Date 02/19/25 IV Insertion Time 07:22 Catheter Gauge 20 IV Insertion 1 Attempts Ultrasound Used for No Placement IV Site Assessment WNL IV Care and WNL Maintenance PA: Gastrointestinal Assessment Start: 02/19/25 07:06 Freq: Status: Complete Protocol: Document 02/19/25 07:13 JOLEEN (Rec: 02/19/25 07:15 [facility] [id number]) GI Assessment Gastrointestinal Nausea,Pain Symptoms Pattern Normal Nausea/Vomiting Assessment Nausea Frequency Continuous Emesis Frequency None Last Vital Signs Temperature 97.7 F 02/19/25 07:13 Pulse Rate 60 02/19/25 09:31 Respiratory Rate 16 02/19/25 09:31 Pulse Oximetry 98 02/19/25 09:31 Blood Pressure 146/90 H 02/19/25 09:31 Blood Pressure Mean 106 02/19/25 09:31 Oxygen Delivery Room Air 02/19/25 07:13 Weight 80 kg 02/19/25 07:13 Last Result - Abnormals Only WBC 10.8 K/mm3 (4.5-10.0) H 02/19/25 07:24 MCHC 36.3 g/dl (32-36) H 02/19/25 07:24 Immature Gran % (Auto) 0.6 % (0-0.5) H 02/19/25 07:24 Neut % (Auto) 80.4 % (45.5-73.1) H 02/19/25 07:24 Lymph % (Auto) 10.4 % (18.3-44.2) L 02/19/25 07:24 Abs Immat Gran (auto) 0.06 K/mm3 (0.00-0.031) H 02/19/25 07:24 Absolute Neuts (auto) 8.7 K/mm3 (1.3-6.7) H 02/19/25 07:24 Sodium 135 mmol/L (137-145) L 02/19/25 07:24 Total Bilirubin 1.6 mg/dL (0.2-1.3) H 02/19/25 07:24 AST 77 U/L (17-59) H 02/19/25 07:24 ALT 113 U/L (6-50) H 02/19/25 07:24 Most Recent Suicide Severity Rating Suicide Severity Rating NO RISK INDICATED 02/19/25 07:13
[2025-02-19] MEDS: HYDROmorphone HCL INJ (*CRX) 1 MG/ML SYR IV PUSH ×2 (10:09→12:47)
--- NOTE | 2025-02-19 10:36 | ADMGEN ---
This patient, Ady Garcia, was admitted to Medical Room 261-01. Patient/family oriented to hospital policies and general routines including ID bracelet, bed and alarms, visiting hours, pain management, procedures, bathroom and other care routines, personal items, smoking policy, room service/diet, and visiting hours. Information on how to activate the Rapid Response Team has been discussed. Patient/Family are encouraged to report perceived risks to care and to ask questions if they do not understand what they are told or what they should do.
--- NOTE | 2025-02-19 10:55 | P.HP_ITS ---
H&P: HPI History of Present Illness Date/Time: 02/19/25 10:55 Chief Complaint: abdominal pain Narrative: Patient is a 45-year- old otherwise healthy male who presented to the ER early this morning with complaints of abdominal pain. The pain started around 10:00 p.m. as periumbilical, but has radiated down through his groin area. he became very nauseous last night and had an episode of emesis upon arrival to the emergency department. No changes in bowel or bladder habits. Once in the ED, labs revealed a mildly elevated WBC of 10.8. Afebrile A CT of the abdomen and pelvis revealed acute appendicitis. Patient was admitted to general surgery service. Started on Zosyn and IV pain medication. Denies any history of abdominal surgeries. [facility] Past Medical History Medical History Hyperlipidemia Family History Family History Father Hypertension Heart problem Mother Breast cancer Grandparent Bone cancer Hypertension Heart problem Cerebrovascular accident Other Family history of coronary artery disease Social History Social History (Updated 05/22/24 @ 07:48 by Nelly Aviles CMA) Smoking status: Never smoker Second hand tobacco smoke exposure: No Alcohol intake: current Drinks per week: 7 Substance use: never Substance use type: does not use Lack of Transportation: No Lack of Food: Never True Current Housing: I Have Housing Concerned About Future Housing: No Difficulty Paying Gas/Electric Bills: No Difficulty Paying for Meds: No Currently Unemployed: No Education: Master's Degree or Higher Difficulty w/ Childcare or Family Care: No 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 Gender identity (if verbalized by the patient): Male Spiritual care concerns: No Meds Home Medications and Allergies Home Medications ?Medication ?Instructions ?Recorded ?Confirmed ?Type acetaminophen 500 mg tablet 1,000 mg (2 x 500 mg) PO T ID PRN 05/15/24 02/19/25 Rx (Tylenol Extra Strength) pain #30 tabs naproxen 500 mg tablet 500 mg PO BID PRN pain 15 da ys #30 05/15/24 02/19/25 Rx tabs Allergies Allergy/AdvReac Type Severity Reaction Status Date / Time No Known Allergies Allergy Verified 02/19/25 10:48 Vital Signs Vital Signs - 24 hr 02/19/25 07:13 02/19/25 07:16 02/19/25 07:31 Temperature 97.7 F Pulse Rate 61 60 56 L Respiratory Rate 16 16 16 Blood Pressure 160/77 H 144/97 H 149/91 H Pulse Oximetry 98 97 98 Oxygen Delivery Room Air 02/19/25 08:54 02/19/25 09:31 Temperature Pulse Rate 60 60 Respiratory Rate 16 16 Blood Pressure 155/94 H 146/90 H Pulse Oximetry 98 98 Oxygen Delivery Exam Const: General: uncomfortable Neck: Neck: supple and no JVD Resp: Effort & Inspection: normal respiratory effort Cardio: Rate: bradycardic GI: Inspection: non-distended GI Palp: Yes Soft to palpation and Yes Tenderness to palpation present (GI) (periumbilical) Auscultation: normal bowel sounds Skin: General skin exam: normal color and no rashes or lesions noted Extrem: General: normal to inspection Psych: Mental Status: mental status grossly normal Results Labs Labs: Short CBC 02/19/25 Range/Units 07:24 WBC 10.8 H (4.5-10.0) K/mm3 Hgb 15.7 (14.0-18.0) g/dL Hct 43.3 (42.0-52.0) % Plt Count 182 (150-375) k/mm3 BMP 02/19/25 07:24 Sodium 135 L Potassium 4.2 Chloride 103 Carbon Dioxide 25 BUN 13 Creatinine 0.84 Glucose 109 Calcium 9.6 Liver Function 02/19/25 Range/Units 07:24 Total Bilirubin 1.6 H (0.2-1.3) mg/dL AST 77 H (17-59) U/L ALT 113 H (6-50) U/L Alkaline Phosphatase 52 (38-126) U/L Albumin 4.8 (3.5-5.1) g/dL Urine 02/19/25 Range/Units 07:35 Urine Color Yellow (Yellow) Urine Appearance Clear (Clear) Urine pH 8.0 (5.0-9.0) Ur Specific [place] 1.019 (1.001-1.035) Urine Protein Trace (Negative) mg/dL Urine Glucose (UA) Negative (Negative) mg/dL Assessment and Plan Assessment and plan (1) Acute appendicitis: Code(s): K35.80 - Unspecified acute appendicitis Status: Acute Assessment and Plan: Patient presented to the ED this morning with complaints of abdominal pain that started earlier in the evening around 10 pm. He had associated nausea and vomiting. Labs revealed mildly elevated WBC count of 10.8. Ct showed acute appendicitis. Patient very tender diffusely to abdomen. Will plan for laparoscopic appendectomy later this afternoon pending OR availability. risks, benefits, and alternatives discussed with the patient. He is agreeable to proceed with surgery. Keep patient NPO and treat pain and nausea. Plan Discussed patient's case and plan of care with Dr. Caro.
[2025-02-19] MEDS: LACTATED RINGERS 1,000 ML 30 ML IV CONT ×2 (14:15→17:43)
[2025-02-19] MEDS: HYDROmorphone HCL INJ (*CRX) 1 MG/ML SYR 0.25 MG IV PUSH (15:32)
--- NOTE | 2025-02-19 15:47 | WPDHPUPDATE1 ---
History and Physical Update Update Date/Time: 02/19/25 15:47 History and Physical has been reviewed, including an updated exam of the patient. There are NO changes in the patient's condition. Risks, benefits, and alternatives have been discussed and questions answered. Patient agrees to proceed with procedure.
--- NOTE | 2025-02-19 15:57 | SUR.PREOP ---
1515- Patient requesting pain medication. Orders received for IV Dilaudid from Dr. Draper, see MAR for administration. 1530- Rounded on patient and spouse. Given update on timeline for procedure to start and patient denying needs at this time. 1540- Updated patient and spouse procedure start time should begin prior to or at 1600. All questions and concerns answered at this time.
--- NOTE | 2025-02-19 16:00 | WPDANESEPPF ---
Anes - Initial Pre Proc Eval Procedure: Operation Date: 02/19/25 17:00 Proposed Procedures p Laparoscopic Appendectomy, Possible Open - Javon Caro MD Date/Time: 02/19/25 16:00 Surgeon: Javon Caro MD Pre Op Diagnosis: Appy Patient Data Age: 45 Gender: M Height: 1.78 m Weight: 80.5 kg Last Vital Signs Temp 97.9 F 02/19/25 14:27 Pulse 51 L 02/19/25 14:27 Resp 16 02/19/25 14:27 BP 153/83 H 02/19/25 14:27 Pulse Ox 99 02/19/25 14:27 O2 Del Method Room Air 02/19/25 14:27 Allergies Allergy/AdvReac Type Severity Reaction Status Date / Time No Known Allergies Allergy Verified 02/19/25 10:48 Home Medications ?Medication ?Instructions ?Recorded ?Confirmed ?Type acetaminophen 500 mg tablet 1,000 mg (2 x 500 mg) PO TID PRN 05/15/24 02/19/25 Rx (Tylenol Extra Strength) pain #30 tabs naproxen 500 mg tablet 500 mg PO BID PRN pain 15 days #30 05/15/24 02/19/25 Rx tabs Laboratory Tests 02/19/25 02/19/25 07:24 07:35 WBC 10.8 H K/mm3 (4.5-10.0) RBC 5.27 M/mm3 (4.6-6.20) Hgb 15.7 g/dL (14.0-18.0) Hct 43.3 % (42.0-52.0) MCV 82.2 fl (80-100) MCH 29.8 pg (26-34) MCHC 36.3 H g/dl (32-36) RDW 12.4 % (11.5-14.5) Plt Count 182 k/mm3 (150-375) MPV 10.4 fl (7.4-10.4) Immature Gran % (Auto) 0.6 H % (0-0.5) Neut % (Auto) 80.4 H % (45.5-73.1) Lymph % (Auto) 10.4 L % (18.3-44.2) Williams % (Auto) 4.9 % (2.6-8.5) Eos % (Auto) 3.1 % (0-4.4) Baso % (Auto) 0.6 % (0.2-1.2) Lymph # (Auto) 1.13 K/mm3 (0.9-3.2) Williams # (Auto) 0.5 K/mm3 (0.1-0.6) Eos # (Auto) 0.3 K/mm3 (0-0.3) Baso # (Auto) 0.1 K/mm3 (0.0-0.1) Abs Immat Gran (auto) 0.06 H K/mm3 (0.00-0.031) Absolute Neuts (auto) 8.7 H K/mm3 (1.3-6.7) Absolute Nucleated RBC 0.000 K/mm3 (0.0-0.012) Nucleated RBC % 0.0 % (0.0-0.2) Sodium 135 L mmol/L (137-145) Potassium 4.2 mmol/L (3.4-5.0) Chloride 103 mmol/L (98-107) Carbon Dioxide 25 mmol/L (22-30) Anion Gap 7 mmol/L (4-12) BUN 13 mg/dL (9-20) Creatinine 0.84 mg/dL (0.7-1.3) Estim Creat Clear Calc 101 ml/min Estimated GFR > 60 (59 - ) Glucose 109 mg/dL (65-110) Lactic Acid 1.4 mmol/L (0.7-2.0) Calcium 9.6 mg/dL (8.4-10.2) Total Bilirubin 1.6 H mg/dL (0.2-1.3) AST 77 H U/L (17-59) ALT 113 H U/L (6-50) Alkaline Phosphatase 52 U/L (38-126) Total Protein 7.6 g/dL (6.3-8.2) Albumin 4.8 g/dL (3.5-5.1) Lipase 90 U/L (23-300) Urine Color Yellow (Yellow) Urine Appearance Clear (Clear) Urine pH 8.0 (5.0-9.0) Ur Specific [place] 1.019 (1.001-1.035) Urine Protein Trace mg/dL (Negative) Urine Glucose (UA) Negative mg/dL (Negative) Urine Ketones Negative mg/dL (Negative) Ur Blood (Man) Negative (Negative) Urine Nitrate Negative (Negative) Urine Bilirubin Negative (Negative) Urine Urobilinogen 0.2 mg/dL (<2.0) Leukocyte Esterase Rfl Negative DAVID/UL (Negative) Urine RBC 0-2 /hpf (0-2) Urine WBC 0-5 /hpf (0-3) Ur Squamous Epith Cells None seen /hpf (Few) Urine Bacteria None seen /hpf Urine Casts 0-2 Patient hx anesthesia problems: none Family hx anesthesia problems: none Results Review: All pre-operative results and documents have been reviewed as part of the pre-operative evaluation. [facility] Past Medical History Medical History Hyperlipidemia Family History Family History Father Hypertension Heart problem Mother Breast cancer Grandparent Bone cancer Hypertension Heart problem Cerebrovascular accident Other Family history of coronary artery disease Social History Social History Smoking status: Never smoker Second hand tobacco smoke exposure: No Alcohol intake: current Drinks per week: 7 Substance use: never Substance use type: does not use Lack of Transportation: No Lack of Food: Never True Current Housing: I Have Housing Concerned About Future Housing: No Difficulty Paying Gas/Electric Bills: No Difficulty Paying for Meds: No Currently Unemployed: No Education: Master's Degree or Higher Difficulty w/ Childcare or Family Care: No 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 Hyperlipidemia, active 45 yo male, runs daily, no cp or sob, now w acute appy. Informed Consent: The patient's anesthetic plan and its attendant risks and benefits were discussed with the patient/family/POA. Questions were solicited and answers provided to the satisfaction of the patient/family/POA.
[2025-02-19] MEDS: LIDO 1%/EPINEPHRINE 1:100,000 50 ML VIAL (16:22)
[2025-02-19] MEDS: BUPivacaine HCL 0.5% 10 ML AMP 30 ML INFILTRATE (16:22)
--- NOTE | 2025-02-19 16:41 | S_PTH ---
PATIENT: Ady Garcia LOC: [id number] U#:[id number] AGE/SX: 45/M ROOM: 258 RE02/19/[address]: Julio Dominique MD : [id number] BED: 01 DIS: 02/23/2025 SPEC #: [id number] RECD: 02/20/25 08:08 STATUS: LIAM RE #: [id number] SANDRA: 02/19/25 16:[address]: Javon Caro DEPT: [facility] Surgical RECD BY: Lily Gutierrez ENTERED: 02/20/25 08:08 SP TYPE: Surgical OTHR DR: Clara ReedMD Tissues: A - Appendix Procedures: Hematoxylin and Eosin Stain Gross and Microscopic Level 3
--- NOTE | 2025-02-19 18:10 | P.OP_ITS ---
Procedure Note - Detailed Date of Procedure 02/19/25 Pre-op Diagnosis Acute appendicitis Post-op Diagnosis Other ( Acute retrocecal appendicitis with perforation) Procedure Performed Laparoscopic appendectomy Surgeon Javon Caro MD K9 Handler Carlos Mejias, OVIDIO Barlow Anesthesia General Indications Patient is a 45-year-old white male who he had 12hour history of worsening right lower quadrant abdominal pain. CT scan abdomen pelvis showed a dilated acute appendicitis without evidence of periappendiceal abscess or perforation on CT scan. Findings Patient had an advanced case of retrocecal appendicitis with a large appendicolith impacted within the proximal part of the appendix near the base. The mid portion of the appendix to the tip was very inflamed and almost gangrenous. Upon fibrillation of the appendix to free it from its peritoneal attachments behind the cecum the appendix ruptured and there was spillage of some feculent material. This was quickly aspirated from the there was some spillage of stool. After thorough washout of the right lower quadrant the abdomen a BRISA drain was left in the area postoperatively. Description of Procedure After informed consent was obtained patient was brought to the operating room was placed supine position and general endotracheal anesthesia was administered. A Lee catheter was placed decompress the bladder and the stomach was decompressed with an orogastric tube. The abdomen was then prepped and draped usual sterile fashion. A time-out was then performed correctly identifying the patient as well as procedure to be performed. He was already on scheduled IV antibiotics. First entered the abdomen left upper quadrant utilizing a 5mm Optiview port. Once inside the abdomen insufflated to adequate pneumoperitoneum of 15mmHg of CO2. I then placed a 5mm suprapubic trocar port as well as a 5mm right lower quadrant trocar port and a 12mm periumbilical trocar port all under direct visualization. With the patient then placed in the head-down Trendelenburg position rotated to the patient's left I then used a laparoscopic grasper to reach donald to the omentum off of the cecum and initially I did not see the appendix at the junction of the terminal ileum and cecum. I then looked behind and underneath the cecum and found the appendix which was in a retrocecal position. I then proceeded to mobilize the appendix from the retrocecal position with a combination of blunt dissection with the suction tip and laparoscopic milton. During manipulation of the appendix the midportion of the appendix is rupture and there was some spillage of stool into the area. This was quickly suctioned up. I then proceeded to start to divide the mesoappendix with a 45mm echelon laparoscopic stapler with a vascular load. Only a portion of the appendix was divided with the stapler and on the stay side there was bleeding from the staple line. I attempted to achieve hemostasis with electrocautery but this was unsuccessful. I then proceeded to use a 5mm laparoscopic clip dispensing lead to finally achieve hemostasis in this area the mesoappendix. I then serially divided the mesoappendix with additional vascular reload to the 45mm Endo-ROMAN stapler. Once I finally reached the base of the appendix I then divided the appendix flush with the cecum with a blue ROMAN load to the stapler. In order to do this I had to reduce a large appendicolith of the base of the appendix into the distal portion of the appendix. Once the appendix was completely freed from the cecum then placed into an Endo-Catch bag and brought out through the periumbilical trocar port site. It was passed off table sent to pathology for examination. I then irrigated out the right lower quadrant the abdomen and both staple lines with [id number] of sterile saline solution. I continued to irrigate until there was no suggestion of any feculent fluid left in the right lower quadrant or the right side of the abdomen or pelvis. The laparoscopic clips and staple lines were all in good position with hemostasis in all points. I then proceeded to place a 15 Kinyarwanda round Brody drain into the right lower quadrant the abdomen in the area of the cecum due to the perforation of the appendix with manipulation and spillage of stool in the area. The drain was placed through the right lower quadrant trocar port site and secured to the skin with 3-0 nylon suture. I then removed all the other trocar ports under direct visualization all port sites were hemostatic. The abdomen was then allowed to decompress. I irrigated all the port sites sterile saline solution. The 12mm periumbilical trocar port fascial defect was then closed utilizing a 0 PDS suture placed in a figure-eight fashion the skin edges in all the port sites were then approximated utilizing a running subcuticular 4-0 Monocryl suture. The incisions were then cleaned and then skin glue was applied. The drain was placed to active grenade bulb suction. A drain dressing was placed. The patient tolerated the procedure well no complications. All sponges, needles, and instrument counts were correct at the end procedure. EBL was _50__cc. The patient was awakened and taken to recovery in stable and satisfactory condition. Implants None Estimated Blood Loss 50 Drains Yes ( 15 Kinyarwanda BRISA drain right lower quadrant.) Packing No Pathology Yes ( Appendix and appendicoliths to pathology) Complications No immediate complications Condition Stable Disposition PACU [facility] Billing Surgery - Charge Forward: Surgery Billing
[2025-02-19] MEDS: fentaNYL CITRATE INJ (*CRX) 100 MCG/2 ML VIAL 25 MCG IV PUSH ×4 (18:44→19:01)
[2025-02-19] MEDS: HYDROcodone/acetaminophen (*CRX) 5-325 MG TABLET 1 TAB PO (21:12)
[2025-02-20] VITALS (8 sets, daily range): BP systolic 117–137; BP diastolic 62–83; PULSE 61–84; RESP 16–18; TEMP 36.5–37.1; O2SAT 93–96
[2025-02-20] MEDS: PIPERACILLIN/TAZOBACTAM SOD 3.375 GM in SODIUM CHLORIDE 0.9% IV 50 ML 100 ML IVPB ×4 (02:58→21:18)
[2025-02-20] MEDS: HYDROcodone/acetaminophen (*CRX) 5-325 MG TABLET 1 TAB PO ×5 (02:59→21:17)
[2025-02-20 05:31] LABS: Hematocrit 37.7 % (42.0-52.0); Hemoglobin 13.4 g/dL (14.0-18.0); Immature Granulocyte Percent A 0.4 % (0-0.5); Lymphocytes Absolute Auto 1.06 K/mm3 (0.9-3.2); Mean Corpuscular HGB Conc 35.5 g/dl (32-36); Mean Corpuscular Hemoglobin 29.9 pg (26-34); Mean Corpuscular Volume 84.2 fl (80-100); Nucleated Red Blood Cells Absolute Auto 0.000 K/mm3 (0.0-0.012); Nucleated Red Blood Cells Perc 0.0 % (0.0-0.2); Platelet Count Result 174 k/mm3 (150-375); Red Blood Count 4.48 M/mm3 (4.6-6.20); White Blood Count 13.9 K/mm3 (4.5-10.0)
[2025-02-20 05:40] LABS: Anion Gap 2 mmol/L (4-12); Blood Urea Nitrogen 14 mg/dL (9-20); Calcium 9.2 mg/dL (8.4-10.2); Carbon Dioxide 31 mmol/L (22-30); Chloride 101 mmol/L (98-107); Estimated CRCL calculation 85 ml/min; Estimated Glomerular Filt Rate > 60; Glucose 123 mg/dL (65-110); Potassium 4.2 mmol/L (3.4-5.0); Sodium 134 mmol/L (137-145)
--- NOTE | 2025-02-20 12:45 | P.PNGS_ITS ---
Progress Note: A&P Assessment and Plan (1) Acute appendicitis: Code(s): K35.80 - Unspecified acute appendicitis Status: Acute Assessment and Plan: * S/p laparoscopic appendectomy for acute appendicitis with perforation during surgery. WBC count 13,900 today. He is afebrile. Will continue IV Zosyn and repeat labs again in the am. * Will advance to a soft diet for dinner * Monitor the BRISA drain * Plan to keep him for at least another 24 hours on IV antibiotics and monitor * Increase activity, ambulate in the room/halls, up to chair Plan Discussed patient's case and plan of care with Dr. Caro. Subjective Subjective Date/Time Seen: 02/20/25 12:45 Post Op day: 1 (Laparoscopic appendectomy) Patient reports: no new complaints, feels better, pain is less, tolerating liquids well, voiding w/o difficulty, flatus, no bowel movement and afebrile Interval history: Patient reports abdominal pain is better since surgery. He has very minimal incisional discomfort. Reports having mostly discomfort from bloating. No nausea or vomiting. He tolerated full liquids this am for breakfast. He has not ambulated yet this morning, but was up last night without any issues. WBC count up slightly to 13k today from 10k yesterday. No fevers. Exam Const: General: comfortable and no acute distress GI: Inspection: non-distended and incision (incisions dry and intact) GI Palp: Yes Soft to palpation, Yes Tenderness to palpation present (GI) (mild diffuse tenderness) and No Guarding due to palpation present (GI) Auscultation: normal bowel sounds Other: BRISA drain with serosanguineous drainage, slightly cloudy, but not purulent Extrem: General: no calf tenderness and no edema Objective Data Vital Signs Vital Signs: Vital Signs - 24 hr 02/19/25 14:27 02/19/25 17:43 02/19/25 17:58 Temperature 97.9 F 97.5 F L Pulse Rate 51 L 76 70 Respiratory Rate 16 18 18 Blood Pressure 153/83 H 130/68 119/55 L Pulse Oximetry 99 100 98 Oxygen Delivery Room Air Simple Face Mask Simple Face Mask Oxygen Flow Rate 8 8 02/19/25 18:15 02/19/25 18:30 02/19/25 18:34 Temperature Pulse Rate 72 83 Respiratory Rate 18 18 Blood Pressure 125/58 L 123/63 Pulse Oximetry 98 98 96 Oxygen Delivery Simple Face Mask Simple Face Mask Room Air Oxygen Flow Rate 8 8 02/19/25 18:45 02/19/25 19:00 02/19/25 19:15 Temperature Pulse Rate 86 87 85 Respiratory Rate 16 16 14 Blood Pressure 143/67 H 145/71 H 143/81 H Pulse Oximetry 96 96 96 Oxygen Delivery Room Air Room Air Oxygen Flow Rate 02/19/25 20:00 02/19/25 20:15 02/20/25 01:00 Temperature 97.4 F L 97.9 F 98.1 F Pulse Rate 83 80 84 Respiratory Rate 18 18 18 Blood Pressure 152/70 H 146/76 H 126/62 Pulse Oximetry 98 99 93 Oxygen Delivery Oxygen Flow Rate 02/20/25 04:00 02/20/25 07:49 02/20/25 11:38 Temperature 98.7 F 98.3 F Pulse Rate 77 63 68 Respiratory Rate 18 16 18 Blood Pressure 130/62 122/72 127/83 Pulse Oximetry 93 96 95 Oxygen Delivery Oxygen Flow Rate Intake/Output Intake/Output: Intake & Output 02/17/25 02/18/25 02/19/25 02/20/25 23:59 23:59 23:59 23:59 Intake Total 2650 1380 Output Total 60 40 Balance 2590 1340 Meds/Results Medications: Active Medications Generic Name Dose Route Start Last Admin Trade Name Freq PRN Reason Stop Dose Admin Acetaminophen 1,000 mg 02/19/25 19:26 Acetaminophen 500 Mg Tablet PO Q6H PRN Mild Pain (1-3) or Fever Hydrocodone Bitart/Acetaminophen 1 tab 02/19/25 19:26 02/20/25 09:32 Hydrocodone/Acetaminophen (*Crx) 5-325 Mg Tablet PO 1 tab Q4H PRN Administration Pain Rated 4-6 Hydromorphone HCl 1 mg 02/19/25 18:06 Hydromorphone Hcl Inj (*Crx) 1 Mg/Ml Syr IV PUSH Q4H PRN Pain Rated 7-10 IF NPO Piperacillin Sod/Tazobactam 50 mls @ 100 mls/hr 02/19/25 15:00 02/20/25 09:33 Sod 3.375 gm/ Sodium Chloride IVPB 100 mls/hr Q6H MARGY Administration Ibuprofen 800 mg in 200 mls @ 400 mls/hr 02/19/25 19:26 Caldolor 800 Mg/200 Ml IVPB Q6H PRN Pain Rated 4-6 IF NPO Ondansetron HCl 4 mg 02/19/25 18:06 Ondansetron Inj 4 Mg/2 Ml Vial IV PUSH Q6H PRN Nausea And Vomiting Oxycodone HCl 5 mg 02/19/25 19:26 Oxycodone Hcl (*Crx) 5 Mg Tab Ir PO Q6H PRN Pain Rated 7-10 Radiology Results: ITS Impressions Abdomen/Pelvis CT 02/19/25 08:29 IMPRESSION: 1. Acute appendicitis. No complicating features. Labs Labs: Laboratory Results - last 24 hr 02/20/25 05:19 WBC 13.9 H RBC 4.48 L Hgb 13.4 L Hct 37.7 L MCV 84.2 MCH 29.9 MCHC 35.5 RDW 12.3 Plt Count 174 MPV 10.6 H Immature Gran % (Auto) 0.4 Neut % (Auto) 86.6 H Lymph % (Auto) 7.6 L [place] % (Auto) 5.1 Eos % (Auto) 0.1 Baso % (Auto) 0.2 Lymph # (Auto) 1.06 [place] # (Auto) 0.7 H Eos # (Auto) 0.0 Baso # (Auto) 0.0 Abs Immat Gran (auto) 0.05 H Absolute Neuts (auto) 12.0 H Absolute Nucleated RBC 0.000 Nucleated RBC % 0.0 Sodium 134 L Potassium 4.2 Chloride 101 Carbon Dioxide 31 H Anion Gap 2 L BUN 14 Creatinine 1.01 Estim Creat Clear Calc 85 Estimated GFR > 60 Glucose 123 H Calcium 9.2
--- NOTE | 2025-02-20 12:49 | WPDANESPN ---
Anes - Prog Note Post-Op Date/Time: 02/20/25 12:49 Cardiovascular status: normal Respiratory status: normal Airway patency: baseline Mental status: baseline Post-Op hydration status: normal Vital Signs: Last Vital Signs Temp 36.8 C 02/20/25 11:38 Pulse 68 02/20/25 11:38 Resp 18 02/20/25 11:38 BP 127/83 02/20/25 11:38 Pulse Ox 95 02/20/25 11:38 O2 Del Method Room Air 02/19/25 19:00 O2 Flow Rate 8 02/19/25 18:30 Pain Score (VAS): 2 I/O: Intake & Output 02/19/25 02/20/25 02/20/25 23:59 07:59 15:59 Intake Total 6164 492 8474 Output Total 60 40 Balance 0987 368 8233 Laboratory Tests 02/20/25 05:19 02/20/25 05:19 02/20/25 05:19 WBC 13.9 H RBC 4.48 L Hgb 13.4 L Hct 37.7 L MCV 84.2 MCH 29.9 MCHC 35.5 RDW 12.3 Plt Count 174 MPV 10.6 H Immature Gran % (Auto) 0.4 Neut % (Auto) 86.6 H Lymph % (Auto) 7.6 L [place] % (Auto) 5.1 Eos % (Auto) 0.1 Baso % (Auto) 0.2 Lymph # (Auto) 1.06 [place] # (Auto) 0.7 H Eos # (Auto) 0.0 Baso # (Auto) 0.0 Abs Immat Gran (auto) 0.05 H Absolute Neuts (auto) 12.0 H Absolute Nucleated RBC 0.000 Nucleated RBC % 0.0 Sodium 134 L Potassium 4.2 Chloride 101 Carbon Dioxide 31 H Anion Gap 2 L BUN 14 Creatinine 1.01 Estim Creat Clear Calc 85 Estimated GFR > 60 Glucose 123 H Calcium 9.2 Post-procedural complaints: none Patient Feedback: Patient satisfied with anesthetic care.
[2025-02-21] MEDS: HYDROcodone/acetaminophen (*CRX) 5-325 MG TABLET 1 TAB PO ×5 (01:50→19:32)
[2025-02-21] MEDS: PIPERACILLIN/TAZOBACTAM SOD 3.375 GM in SODIUM CHLORIDE 0.9% IV 50 ML 100 ML IVPB ×4 (03:59→21:45)
[2025-02-21 05:04] LABS: Hematocrit 40.5 % (42.0-52.0); Hemoglobin 14.0 g/dL (14.0-18.0); Mean Corpuscular HGB Conc 34.6 g/dl (32-36); Mean Corpuscular Hemoglobin 29.9 pg (26-34); Mean Corpuscular Volume 86.4 fl (80-100); Platelet Count Result 157 k/mm3 (150-375); Red Blood Count 4.69 M/mm3 (4.6-6.20); White Blood Count 9.8 K/mm3 (4.5-10.0)
[2025-02-21 05:36] LABS: Anion Gap 7 mmol/L (4-12); Blood Urea Nitrogen 15 mg/dL (9-20); Calcium 8.8 mg/dL (8.4-10.2); Carbon Dioxide 27 mmol/L (22-30); Chloride 101 mmol/L (98-107); Estimated CRCL calculation 84 ml/min; Estimated Glomerular Filt Rate > 60; Glucose 105 mg/dL (65-110); Potassium 3.8 mmol/L (3.4-5.0); Sodium 135 mmol/L (137-145)
[2025-02-21 06:00] VITALS: BP 139/80; PULSE 65; RESP 16; TEMP 36.4; O2SAT 98
[2025-02-21 14:00] VITALS: BP 135/74; PULSE 63; RESP 20; TEMP 36.7; O2SAT 96
--- NOTE | 2025-02-21 15:33 | P.PNGS_ITS ---
Progress Note: A&P Assessment and Plan (1) Acute appendicitis: Code(s): K35.80 - Unspecified acute appendicitis Status: Acute Assessment and Plan: * Pod 2 S/p laparoscopic appendectomy for acute appendicitis with perforation during surgery. WBC normalized. Patient remains afebrile. No bowel function yet. BIRSA drain with moderate amount of serosanguineous fluid. Umbilical incision with some surrounding cellulitic skin changes. No purulence or fluctuance. Continue IV antibiotics with switch to oral antibiotics upon discharge. Will likely pull drain before discharge. * Continue with regular diet. * Continue OOB/ambulation. Plan Discussed patient's case and plan of care with Dr. Caro. Subjective Subjective Date/Time Seen: 02/21/25 15:33 Patient reports: no new complaints, flatus, no bowel movement and afebrile Interval history: Walking the halls today. BRISA drain with s/s fluid. WBC normalized to 9.8. Patient tolerating low-fiber diet. Still no bowel movement. Exam Const: General: comfortable and no acute distress Neck: Neck: supple and no JVD Resp: Effort & Inspection: normal respiratory effort Cardio: Rate: regular rate GI: Inspection: non-distended GI Palp: Yes Soft to palpation, Yes Tenderness to palpation present (GI) (Minimal) and No Guarding due to palpation present (GI) Auscultation: normal bowel sounds Other: Umbilical incision with some surrounding cellulitic skin changes. Skin: General skin exam: normal color Objective Data Vital Signs Vital Signs: Vital Signs - 24 hr 02/20/25 15:40 02/20/25 20:00 02/20/25 22:29 Temperature 98 F 97.7 F Pulse Rate 61 62 62 Respiratory Rate 16 16 16 Blood Pressure 117/74 137/82 Pulse Oximetry 96 94 94 Oxygen Delivery Room Air 02/20/25 23:40 02/21/25 06:00 02/21/25 14:00 Temperature 97.6 F 98.1 F Pulse Rate 65 63 Respiratory Rate 16 20 Blood Pressure 139/80 135/74 Pulse Oximetry 94 98 96 Oxygen Delivery Room Air Intake/Output Intake/Output: Intake & Output 02/18/25 02/19/25 02/20/25 02/21/25 23:59 23:59 23:59 23:59 Intake Total 2650 3080 1360 Output Total 60 85 Balance 2590 2995 1360 Meds/Results Medications: Active Medications Generic Name Dose Route Start Last Admin Trade Name Freq PRN Reason Stop Dose Admin Acetaminophen 1,000 mg 02/19/25 19:26 Acetaminophen 500 Mg Tablet PO Q6H PRN Mild Pain (1-3) or Fever Hydrocodone Bitart/Acetaminophen 1 tab 02/19/25 19:26 02/21/25 15:11 Hydrocodone/Acetaminophen (*Crx) 5-325 Mg Tablet PO 1 tab Q4H PRN Administration Pain Rated 4-6 Hydromorphone HCl 1 mg 02/19/25 18:06 Hydromorphone Hcl Inj (*Crx) 1 Mg/Ml Syr IV PUSH Q4H PRN Pain Rated 7-10 IF NPO Piperacillin Sod/Tazobactam 50 mls @ 100 mls/hr 02/19/25 15:00 02/21/25 15:12 Sod 3.375 gm/ Sodium Chloride IVPB 100 mls/hr Q6H MARGY Administration Ibuprofen 800 mg in 200 mls @ 400 mls/hr 02/19/25 19:26 Caldolor 800 Mg/200 Ml IVPB Q6H PRN Pain Rated 4-6 IF NPO Ondansetron HCl 4 mg 02/19/25 18:06 Ondansetron Inj 4 Mg/2 Ml Vial IV PUSH Q6H PRN Nausea And Vomiting Oxycodone HCl 5 mg 02/19/25 19:26 Oxycodone Hcl (*Crx) 5 Mg Tab Ir PO Q6H PRN Pain Rated 7-10 Radiology Results: ITS Impressions Abdomen/Pelvis CT 02/19/25 08:29 IMPRESSION: 1. Acute appendicitis. No complicating features. Labs Labs: Laboratory Results - last 24 hr 02/21/25 04:26 WBC 9.8 RBC 4.69 Hgb 14.0 Hct 40.5 L MCV 86.4 MCH 29.9 MCHC 34.6 RDW 12.4 Plt Count 157 MPV 10.7 H Sodium 135 L Potassium 3.8 Chloride 101 Carbon Dioxide 27 Anion Gap 7 BUN 15 Creatinine 1.02 Estim Creat Clear Calc 84 Estimated GFR > 60 Glucose 105 Calcium 8.8
[2025-02-21 20:00] VITALS: PULSE 57; RESP 20; O2SAT 96
[2025-02-21 21:47] VITALS: BP 125/74; PULSE 57; RESP 20; TEMP 36.9; O2SAT 95
[2025-02-21 23:43] VITALS: O2SAT 96
[2025-02-22] MEDS: HYDROcodone/acetaminophen (*CRX) 5-325 MG TABLET 1 TAB PO ×2 (00:58→08:16)
[2025-02-22] MEDS: PIPERACILLIN/TAZOBACTAM SOD 3.375 GM in SODIUM CHLORIDE 0.9% IV 50 ML 100 ML IVPB ×4 (03:56→20:56)
[2025-02-22 05:13] LABS: Hematocrit 42.8 % (42.0-52.0); Hemoglobin 14.9 g/dL (14.0-18.0); Mean Corpuscular HGB Conc 34.8 g/dl (32-36); Mean Corpuscular Hemoglobin 29.7 pg (26-34); Mean Corpuscular Volume 85.3 fl (80-100); Platelet Count Result 185 k/mm3 (150-375); Red Blood Count 5.02 M/mm3 (4.6-6.20); White Blood Count 8.2 K/mm3 (4.5-10.0)
[2025-02-22 05:36] LABS: Alanine Aminotransferase 66 U/L (6-50); Albumin Level 4.4 g/dL (3.5-5.1); Alkaline Phosphatase 51 U/L (38-126); Anion Gap 7 mmol/L (4-12); Aspartate Amino Transferase 38 U/L (17-59); Bilirubin,Total 2.3 mg/dL (0.2-1.3); Blood Urea Nitrogen 14 mg/dL (9-20); Calcium 9.2 mg/dL (8.4-10.2); Carbon Dioxide 27 mmol/L (22-30); Chloride 102 mmol/L (98-107); Estimated CRCL calculation 86 ml/min; Estimated Glomerular Filt Rate > 60; Glucose 102 mg/dL (65-110); Potassium 3.8 mmol/L (3.4-5.0); Sodium 136 mmol/L (137-145); Total Protein 7.5 g/dL (6.3-8.2)
[2025-02-22 05:53] VITALS: BP 125/68; PULSE 51; RESP 16; TEMP 36.6; O2SAT 96
--- NOTE | 2025-02-22 10:51 | PM.PNGS ---
Progress Note: A&P Assessment and Plan (1) Ruptured appendicitis: Code(s): K35.32 - Acute appendicitis with perforation, localized peritonitis, and gangrene, without abscess Status: Acute Assessment and Plan: continues to improve, postop day 3. Advanced to low-fiber or soft diet. Increase ambulation. Continue IV antibiotics. Probably home tomorrow, remove BRISA drain, changed oral antibiotics. Recheck labs, abdominal exam, umbilical wound and LFTs tomorrow. Subjective Subjective Date/Time Seen: 02/22/25 10:51 Post Op day: 3 Patient reports: feels better, pain is less ( not really pain, more of a generalized soreness. Taking oral analgesics for pain), voiding w/o difficulty, no bowel movement and afebrile Exam Const: General: cooperative, comfortable, no acute distress, alert, awake and well nourished Orientation/consciousness: patient oriented x3 GI: Inspection: no abdominal wall ecchymosis, non-distended, incision ( erythema decreased around the umbilicus, wound closed, no drainage), scaphoid and other ( drain site and other trocar sites healing well, serosanguineous per BRISA) GI Palp: Yes Soft to palpation, Yes Tenderness to palpation present (GI), No Guarding due to palpation present (GI) and No Rebound tenderness present Auscultation: Hypoactive bowel sounds present Neuro: General: patient oriented x3 and no focal motor deficits Extrem: General: no calf tenderness and no edema Psych: Affect: normal affect Insight: Good insight present (Psych) Judgement: Good judgement present (Psych) Objective Data Vital Signs Vital Signs: Vital Signs - 24 hr 02/21/25 14:00 02/21/25 20:00 02/21/25 21:47 Temperature 36.7 C 36.9 C Pulse Rate 63 57 L 57 L Respiratory Rate 20 20 20 Blood Pressure 135/74 125/74 Pulse Oximetry 96 96 95 Oxygen Delivery Room Air 02/21/25 23:43 02/22/25 05:53 02/22/25 08:21 Temperature 36.6 C Pulse Rate 51 L Respiratory Rate 16 Blood Pressure 125/68 Pulse Oximetry 96 96 Oxygen Delivery Room Air Room Air Intake/Output Intake/Output: Intake & Output 02/19/25 02/20/25 02/21/25 02/22/25 23:59 23:59 23:59 23:59 Intake Total 2650 3080 2950 690 Output Total 60 85 35 Balance 2590 2994 1007 690 Meds/Results Medications: Active Medications Generic Name Dose Route Start Last Admin Trade Name Freq PRN Reason Stop Dose Admin Acetaminophen 1,000 mg 02/19/25 19:26 Acetaminophen 500 Mg Tablet PO Q6H PRN Mild Pain (1-3) or Fever Hydrocodone Bitart/Acetaminophen 1 tab 02/19/25 19:26 02/22/25 08:16 Hydrocodone/Acetaminophen (*Crx) 5-325 Mg Tablet PO 1 tab Q4H PRN Administration Pain Rated 4-6 Hydromorphone HCl 1 mg 02/19/25 18:06 Hydromorphone Hcl Inj (*Crx) 1 Mg/Ml Syr IV PUSH Q4H PRN Pain Rated 7-10 IF NPO Piperacillin Sod/Tazobactam 50 mls @ 100 mls/hr 02/19/25 15:00 02/22/25 08:17 Sod 3.375 gm/ Sodium Chloride IVPB 100 mls/hr Q6H MARGY Administration Ibuprofen 800 mg in 200 mls @ 400 mls/hr 02/19/25 19:26 Caldolor 800 Mg/200 Ml IVPB Q6H PRN Pain Rated 4-6 IF NPO Ondansetron HCl 4 mg 02/19/25 18:06 Ondansetron Inj 4 Mg/2 Ml Vial IV PUSH Q6H PRN Nausea And Vomiting Oxycodone HCl 5 mg 02/19/25 19:26 Oxycodone Hcl (*Crx) 5 Mg Tab Ir PO Q6H PRN Pain Rated 7-10 Radiology Results: ITS Impressions Abdomen/Pelvis CT 02/19/25 08:29 IMPRESSION: 1. Acute appendicitis. No complicating features. Labs Labs: Laboratory Results - last 24 hr 02/22/25 04:37 WBC 8.2 RBC 5.02 Hgb 14.9 Hct 42.8 MCV 85.3 MCH 29.7 MCHC 34.8 RDW 11.9 Plt Count 185 MPV 10.6 H Sodium 136 L Potassium 3.8 Chloride 102 Carbon Dioxide 27 Anion Gap 7 BUN 14 Creatinine 1.00 Estim Creat Clear Calc 86 Estimated GFR > 60 Glucose 102 Calcium 9.2 Total Bilirubin 2.3 H AST 38 ALT 66 H Alkaline Phosphatase 51 Total Protein 7.5 Albumin 4.4 total bilirubin up to 2.3, ALT slightly tell abated.
[2025-02-22] MEDS: ACETAMINOPHEN 500 MG TABLET 1000 MG PO ×2 (13:45→20:56)
[2025-02-22 15:21] VITALS: BP 131/79; PULSE 62; RESP 18; TEMP 36.5; O2SAT 97
[2025-02-22 20:00] VITALS: PULSE 69; RESP 20; O2SAT 97
[2025-02-22 20:21] VITALS: BP 127/77; PULSE 69; RESP 20; TEMP 36.8; O2SAT 97
[2025-02-23] MEDS: PIPERACILLIN/TAZOBACTAM SOD 3.375 GM in SODIUM CHLORIDE 0.9% IV 50 ML 100 ML IVPB ×2 (02:12→09:29)
[2025-02-23] MEDS: ACETAMINOPHEN 500 MG TABLET 1000 MG PO ×2 (02:18→09:28)
[2025-02-23 04:56] LABS: Hematocrit 42.4 % (42.0-52.0); Hemoglobin 14.9 g/dL (14.0-18.0); Immature Granulocyte Percent A 1.3 % (0-0.5); Lymphocytes Absolute Auto 0.90 K/mm3 (0.9-3.2); Mean Corpuscular HGB Conc 35.1 g/dl (32-36); Mean Corpuscular Hemoglobin 29.6 pg (26-34); Mean Corpuscular Volume 84.1 fl (80-100); Nucleated Red Blood Cells Absolute Auto 0.000 K/mm3 (0.0-0.012); Nucleated Red Blood Cells Perc 0.0 % (0.0-0.2); Platelet Count Result 186 k/mm3 (150-375); Red Blood Count 5.04 M/mm3 (4.6-6.20); White Blood Count 6.3 K/mm3 (4.5-10.0)
[2025-02-23 05:18] LABS: Alanine Aminotransferase 57 U/L (6-50); Albumin Level 4.2 g/dL (3.5-5.1); Alkaline Phosphatase 45 U/L (38-126); Anion Gap 7 mmol/L (4-12); Aspartate Amino Transferase 33 U/L (17-59); Bilirubin,Total 1.7 mg/dL (0.2-1.3); Blood Urea Nitrogen 15 mg/dL (9-20); Calcium 9.4 mg/dL (8.4-10.2); Carbon Dioxide 26 mmol/L (22-30); Chloride 104 mmol/L (98-107); Estimated CRCL calculation 88 ml/min; Estimated Glomerular Filt Rate > 60; Glucose 110 mg/dL (65-110); Potassium 4.0 mmol/L (3.4-5.0); Sodium 137 mmol/L (137-145); Total Protein 7.2 g/dL (6.3-8.2)
[2025-02-23 05:59] VITALS: BP 127/68; PULSE 50; RESP 20; TEMP 36.1; O2SAT 96
[2025-02-23] MEDS: ENOXAPARIN 40 MG/0.4 ML SYRINGE SUB-Q (09:30)
--- NOTE | 2025-02-23 12:51 | P.DS_ITS ---
DS: Admitting Diagnosis Discharge Date 02/23/2025 Admitting Diagnosis Acute appendicitis DS: Discharge Diagnosis Discharge Diagnosis (1) Ruptured appendicitis: Code(s): K35.32 - Acute appendicitis with perforation, localized peritonitis, and gangrene, without abscess Status: Acute Assessment and Plan: Laparoscopic appendectomy performed 02/19/[address] 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 He was experiencing periumbilical and right lower quad quadrant pain associated with some nausea and vomiting. Evaluation in the emergency room showed a slightly elevated white count and tenderness in the right lower quadrant. CT scan showed appendicitis with an appendicolith. He was admitted to the hospital and started on Zosyn antibiotics. He was taken to surgery on the day of admission, 02/19/2025. He had a laparoscopic appendectomy. At surgery, it was found that he had a retrocecal appendix with a large appendicolith and perforated appendicitis. For these reasons, the surgery was more difficult. Patient stayed in the hospital and received IV Zosyn antibiotics. He gradually improved. His pain decreased and he he was slowly advanced to solid food. There was some erythema around his umbilical incision but this started to resolve on postop day 2. By the day of discharge it appeared to be healing well. Patient is comfortable on Tylenol, ambulating and tolerating regular diet. He is discharged on 4 days S of Augmentin oral antibiotics and will for follow-up with Dr. Caro in about 10 days. Status at Discharge Functional status at discharge: independent ambulation Overall status at discharge: patient is progressing back to baseline Time Spent with Patient Time attestation: Total time spent providing and/or coordinating discharge services: Time spent: Less than 30 minutes DS: Data Data Completed and Pending Completed studies during hospitalization: Pending at discharge 02/19/25 16:41 Surgical [PTH] Routine Labs on day of discharge: Labs from last 24 hours 02/23/25 04:30 WBC 6.3 RBC 5.04 Hgb 14.9 Hct 42.4 MCV 84.1 MCH 29.6 MCHC 35.1 RDW 11.9 Plt Count 186 MPV 10.4 Immature Gran % (Auto) 1.3 H Neut % (Auto) 70.6 Lymph % (Auto) 14.4 L [place] % (Auto) 7.4 Eos % (Auto) 5.3 H Baso % (Auto) 1.0 Lymph # (Auto) 0.90 [place] # (Auto) 0.5 Eos # (Auto) 0.3 Baso # (Auto) 0.1 Abs Immat Gran (auto) 0.08 H Absolute Neuts (auto) 4.4 Absolute Nucleated RBC 0.000 Nucleated RBC % 0.0 Sodium 137 Potassium 4.0 Chloride 104 Carbon Dioxide 26 Anion Gap 7 BUN 15 Creatinine 0.98 Estim Creat Clear Calc 88 Estimated GFR > 60 Glucose 110 Calcium 9.4 Total Bilirubin 1.7 H AST 33 ALT 57 H Alkaline Phosphatase 45 Total Protein 7.2 Albumin 4.2 Discharge Plan Discharge Attending physician on discharge: Javon Caro Discharging Clinician: Julio Dominique Anticipated Discharge Date/Time: 02/23/25 12:59 Patient Disposition: Home Activity: may shower, no straining and as tolerated Diet: regular Wound Care Instructions: keep dressing dry and remove dressing to shower Discharge Instructions: * Ambulate 3-4 x per day and as tolerated. * No lifting over 15-20lbs. * May bathe or shower. * Stairs are OK. * May drive a car in 3 days. * Remove any dressings before shower and replace after. Continue to replace dressing over drain site until 02/26/2025, at which time the wound can be left open. Patient Instructions: Antibiotic Form Patient Language: [place] Stand Alone Forms: General Discharge Information Follow-up/Referrals: Javon Caro MD [Physician, General Surgery] - 2 Weeks Discharge Medications: New amoxicillin-pot clavulanate 875-125 mg tablet 1 tablet PO Q12H Qty: 8 0RF acetaminophen 500 mg capsule 500 - 1,000 mg PO Q6H MDD 4000 mg or 8 caps PRN (Reason: pain) Qty: 60 0RF Rx Instructions: OTC-no prescription needed Discontinued naproxen 500 mg tablet 500 mg PO BID PRN (Reason: pain) 15 Days Qty: 30 0RF acetaminophen [Tylenol Extra Strength] 500 mg tablet 1,000 mg PO TID PRN (Reason: pain) Qty: 30 0RF Date of admission: 02/19/25 19:26 Primary Care Provider: DerekClara Admitting Provider: Javon Caro Attending physician on admission: Javon Caro Condition: Improved
== END 2025-02-23 13:58 | disposition home or self-care (01) | DRG 399 ==
LOC: ANHED 09:55 → ANH2MED 09:57
PROVIDERS: Nurse Practitioner Family; Admitting Provider Surgery; Emergency Provider Emergency Medicine; PCP Student in an Organized Health Care Education/Training Program; Visit Provider Surgery
PROC: 0DTJ4ZZ Resection of Appendix, Percutaneous Endoscopic Approach (ICD-10-PCS; CPT 44970; principal; 2025-02-19 17:00)
DX: K35.32 Acute appendicitis with perforation, localized peritonitis, and gangrene, without abscess (principal); E78.5 Hyperlipidemia, unspecified
CPT/HCPCS: 36415; 74177; 80048; 80053; 81001; 83605; 83690; 85025; 85027; 88304; 96365; 96375; 99285; A9270; J0330; J1100; J1171; J1650; J2003; J2004; J2250; J2270; J2405; J2543; J2704; J3010; J7120; Q9967